=== PATIENT | female | born 1940 | race Caucasian/White ===

== ENCOUNTER → 2017-04-07 | Outpatient (REF) | payer MEDICARE | LOC: M LAB REF 13:25 | PROVIDERS: ATTEND Internal Medicine Endocrinology, Diabetes & Metabolism | DX: E04.2 Nontoxic multinodular goiter (principal) ==

== ENCOUNTER 2021-06-13 11:56 | Inpatient (IN) | payer MEDICARE ==
[~2021-06-13] VITALS: Ht 167.6 cm; Wt 100.8 kg
[2021-06-13] MEDS ORDERED: BACLOFEN 10 MG TAB PO ONE (13:55)
--- NOTE | 2021-06-13 14:29 | REP ---
INDICATION: tremors. COMPARISON: None. TECHNIQUE: Semi-erect AP portable chest x-ray. FINDINGS: The loop recorder is seen projecting over the left heart and there appears to be a lap band in the left upper quadrant. Oxygen delivery tubing is seen. Cardiomegaly is observed. The lungs are well inflated and free of infiltrate. Pleural angles are sharp. Pulmonary vasculature is not increased. 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 IMPRESSION: Cardiomegaly. Loop recorder. Otherwise no active disease. <Electronically signed by Anival Velez > 06/13/21 [id number]
[2021-06-13 14:39] LABS: BASO # 0.1 10^3/uL (0.0-0.2); BASO % 1.3 % (0.0-1.0); EOS # 0.4 10^3/uL (0.0-0.5); EOS % 4.3 % (0.0-3.0); HEMATOCRIT 47.2 % (36.0-47.0); HEMOGLOBIN 15.6 g/dl (12.0-15.5); LYMPH % 11.1 % (24.0-44.0); MEAN CORPUSCULAR HEMOGLOBIN 29.6 pg (27.0-33.0); MEAN CORPUSCULAR HGB CONC 33.1 g/dl (32.0-36.5); MEAN CORPUSCULAR VOLUME 89.6 fl (80.0-96.0); MONO % 11.9 % (2.0-8.0); NEUTROPHILS # 6.2 10^3/uL (1.5-8.5); NEUTROPHILS % 70.9 % (36.0-66.0); PLATELET COUNT, AUTOMATED 163 10^3/uL (150-450); RED BLOOD COUNT 5.27 10^6/uL (4.00-5.40); WHITE BLOOD COUNT 8.8 10^3/uL (4.0-10.0)
[2021-06-13 15:01] LABS: ALBUMIN 3.1 GM/DL (3.2-5.2); BILIRUBIN,DIRECT 0.1 MG/DL (0.0-0.2); BILIRUBIN,TOTAL 0.6 MG/DL (0.2-1.0); CALCIUM LEVEL 10.7 MG/DL (8.8-10.2); CREATININE FOR GFR 1.47 MG/DL (0.55-1.30); GLOMERULAR FILTRATION RATE 36.2 (>32); POTASSIUM SERUM 4.2 MEQ/L (3.5-5.1); TOTAL PROTEIN 7.4 GM/DL (6.4-8.2)
[2021-06-13 15:03] LABS: CK-MB VALUE MASS 1.4 NG/ML (<3.6); CPK CREATINE PHOSPHOKINASE 19 U/L (26-192); MB/CK RELATIVE INDEX 7.37 (< OR =4); TROPONIN I < 0.02 NG/ML (< 0.10)
[2021-06-13 15:05] LABS: INR 1.82; PROTHROMBIN TIME 21.5 SECONDS (12.5-14.3)
[2021-06-13 15:06] LABS: PARTIAL THROMBOPLASTIN TIME 35.4 SECONDS (24.2-38.5)
[2021-06-13 15:07] LABS: THYROID STIMULATING HORMONE 0.703 uIU/ML (0.358-3.740)
[2021-06-13] MEDS ORDERED: traMADol 50 MG TAB PO ONE ×2 (15:35→15:50)
[2021-06-13] MEDS ORDERED: PREGABALIN 100 MG CAP (LYRICA) PO ONE (15:35)
[2021-06-13 15:49] LABS: RSV AMPLIFICATION NEGATIVE (NEGATIVE)
[2021-06-13] MEDS ORDERED: AMLO1TAB24 PO (16:23)
[2021-06-13] MEDS ORDERED: TRAM50TA2 PO (16:23)
[2021-06-13] MEDS ORDERED: CO Q100C10 PO (16:23)
[2021-06-13] MEDS ORDERED: ATOR40TA75 PO (16:23)
[2021-06-13] MEDS ORDERED: VITA500030 PO (16:23)
[2021-06-13] MEDS ORDERED: IRBE300T7 PO (16:23)
[2021-06-13] MEDS ORDERED: OMEG12003 PO (16:23)
[2021-06-13] MEDS ORDERED: FURO20TA2 PO (16:23)
[2021-06-13] MEDS ORDERED: METO1TAB87 PO (16:23)
[2021-06-13] MEDS ORDERED: BIOT5000 PO (16:23)
[2021-06-13] MEDS ORDERED: LYRI200C PO (16:23)
[2021-06-13] MEDS ORDERED: WARF-58 PO (16:23)
[2021-06-13] MEDS ORDERED: VITMTA PO (16:23)
[2021-06-13] MEDS ORDERED: ACET25TA12 PO (16:49)
[2021-06-13] MEDS ORDERED: HOME MED LIST COMPLETE! XX SCH (16:50)
[2021-06-13] MEDS ORDERED: traMADol 50 MG TAB PO PRN (16:55)
[2021-06-13] MEDS ORDERED: **hydrALAZINE HCL** 25 MG TAB PO PRN (16:55)
--- NOTE | 2021-06-13 17:01 | HPEPDOC ---
General Date of Admission Jun 13, 2021 at 15:56 Date of Service: Jun 13, 2021 Chief Complaint The patient is a 80-year-old female admitted with a reason for visit of Inability To Walk, Tremors Of Nervous System. Source: Patient History of Present Illness Mrs. Martinez is an 80 year old female with chronic neuropathy and multiple spinal cord stimulators s/p removal who is here for worsening tremors/tonic-clonic motions and inability to ambulate. She has been through 3 different spinal cord stimulators. The first one lasted for 10 years. She had her second one lasting for 1.5 years before becoming infected. Her 3rd was placed last year. She was following with Dr. Smith for wound on back related to the spinal cord stimulator. Her wound would not heal with stimulator in place. Patient was referred to Dr. Holder to have it removed. During this time, patient started to have tremors. Tremors started in her hands on April 26, 2021. On May 20, 2021, her spinal cord stimulator was removed. About 8 days later, patient was called to return as blood cultures were positive. A PICC was placed on her right arm and she was on IV cefepime for 2 weeks. Last night was her last dose of cefepime. During this time period, her tremors continued to worsen and involve her legs. It made both ambulation and eating difficult. Today, she could not stand due to the tremors. Patient was brought into the ED for evaluation. ED reached out to neurology, Dr. Miller, who recommended lab work, Baclofen 10mg TID, and EEG. When I saw the patient, she had already gotten the Baclofen and her tremors were improved. She is right handed. She was able to do finger to nose, but had significant tremors worse on left than right. When I attempted pronator drift testing, it seems like her left shoulder was also trembling. Tremors better at rest and worse with activity. Otherwise, patient reported some nausea and abdominal discomfort from the antibiotics, which has improved since antibiotic completion. She had oral thrush which improved with nystatin swish and swallow. She still has her PICC placed. Patient will be admitted for severe tremors affecting ADLs and inability to ambulate. Allergies Coded Allergies: Penicillins (Verified Allergy, Unknown, 06/13/21) Past Medical History Medical History 1. Atrial fibrillation on warfarin 2. ROMARIO on BiPAP 3. Hypertension 4. CHF, unknown EF 5. Chronic back pain 6. GERD 7. 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 Lumbar laminectomy 2. Left carpal tunnel surgery 3. Lap band 4. Dorsal column stimulator in 2018 5. Left PHA 6. Dorsal column stimulator in 2020 7. Left knee 8. Right knee 9. Pacemaker 10. Bilateral cataracts Family History Father: History of lung cancer and MS Mother: History of 5 different cancers Social History * Smoker: former Smoker (quit 25 years ago) Alcohol: Denies Drugs: denies A-FIB/CHADSVASC A-FIB History Current/History of A-Fib/PAF?: Yes Current PO Anticoag Therapy: Yes Review of Systems Constitutional: Denies: Chills, Fever Eyes: Denies: Vision change ENT: Denies: Sore Throat Skin: Reports: Breakdown (sacral) Pulmonary: Denies: Dyspnea, Cough Cardiovascular: Denies: Chest Pain Gastrointestinal: Denies: Nausea, Abdominal Pain Genitourinary: Denies: Dysuria Hematologic: Denies: Bruising Neurological: Reports: Other Symptoms (neuropathy and tremors in arms and legs) Psych: Reports: Depression; Denies: Anxiety Physical Examination General Exam: Positive: Alert, Cooperative Eye Exam: Positive: EOMI; Negative: Sclera icteric ENT Exam: Positive: Atraumatic Neck Exam: Positive: Supple Chest Exam: Positive: Clear to auscultation Heart Exam: Positive: Rate Normal, Regular Rhythm Abdomen Exam: Positive: Normal bowel sounds, Soft; Negative: Tenderness Extremity Exam: Negative: Edema Neuro Exam: Positive: Normal Speech, Other (Patient is right handed, finger to nose intact but with significant tremors worse on left than right) Psych Exam: Positive: Mental status NL, Mood NL Vital Signs Vital Signs Date Time Temp Pulse Resp B/P (MAP) Pulse Ox O2 Delivery O2 Flow Rate FiO2 06/13/21 15:57 18 06/13/21 12:18 98.0 83 136/62 (86) 95 Nasal Cannula 2.0 Laboratory Data Labs 24H Laboratory Tests 2 06/13/21 14:23: Immature Granulocyte % (Auto) 0.5, Neutrophils (%) (Auto) 70.9H, Lymphocytes (%) (Auto) 11.1L, Monocytes (%) (Auto) 11.9H, Eosinophils (%) (Auto) 4.3H, Basophils (%) (Auto) 1.3H, Neutrophils # (Auto) 6.2, Lymphocytes # (Auto) 1.0L, Monocytes # (Auto) 1.0H, Eosinophils # (Auto) 0.4, Basophils # (Auto) 0.1, Nucleated Red Blood Cells % (auto) 0.0, Prothrombin Time 21.5H, Prothromb Time International Ratio 1.82, Activated Partial Thromboplast Time 35.4, Anion Gap 8, Glomerular Filtration Rate 36.2, Lactic Acid Level 0.7, Calcium Level 10.7H, Total Bilirubin 0.6, Direct Bilirubin 0.1, Aspartate Amino Transf (AST/SGOT) 24, Alanine Aminotransferase (ALT/SGPT) 29, Alkaline Phosphatase 95, Total Creatine Kinase 19L, Creatine Kinase MB 1.4, Creatine Kinase MB Relative Index 7.37H, Troponin I < 0.02, Total Protein 7.4, Albumin 3.1L, Albumin/Globulin Ratio 0.7L, Thyroid Stimulating Hormone (TSH) 0.703, Coronavirus (COVID-19)(PCR) NEGATIVE, Influenza Type A (RT-PCR) NEGATIVE, Influenza Type B (RT-PCR) NEGATIVE, Respiratory Syncytial Virus (PCR) NEGATIVE CBC/BMP Laboratory Tests 06/13/21 14:23 Microbiology Microbiology 06/13/21 Blood Culture, Received Pending Assessment/Plan Mrs. Martinez is an 80 year old female with chronic neuropathy and multiple spinal cord stimulators s/p removal who is here for worsening tremors/tonic-clonic motions and inability to ambulate. Neurology was consulted, recommendations appreciated. Continue with Baclofen 10mg TID. EEG ordered Plan / VTE VTE Prophylaxis Ordered?: Yes Plan Plan 1. Severe tremors affecting ADLs and ambulation -Tremors worse with activity, better at rest -Patient unable to ambulate -Neurology consulted, recommendations appreciated -TSH, Copper, Vitamin B1, and Vitamin B12 ordered -EEG ordered -Baclofen 10mg TID 2. Acute kidney injury -Unknown baseline but creatinine is elevated -Will hold Lasix and irbesartan - renal ordered -UA ordered 3. Atrial fibrillation on warfarin -Stable -Continue Lopressor and warfarin -Check INR daily 4. Hypertension -Cotninue amlodipine -Hold irbesartan. Start hydralazine 25mg PO q6hp SBP >160 5. Chronic pain -Cotninue tramadol and pregabalin 6. DVT ppx -On Warfarin Disposition: Pending clinical improvement and ability to ambulate. Pending EEG and neurology evaluation ELEANOR SCHMITZ DO Jun 13, 2021 17:01
--- NOTE | 2021-06-13 17:41 | REPVR ---
PROCEDURE INFORMATION: Exam: CT Head Without Contrast Exam date and time: 06/13/2021 5:17 PM Age: 80 years old Clinical indication: Other: Tremor; Additional info: Tremors, unable to do mri due to pacemaker TECHNIQUE: Imaging protocol: Computed tomography of the head without contrast. Radiation optimization: All CT scans at this facility use at least one of these dose optimization techniques: automated exposure control; mA and/or kV adjustment per patient size (includes targeted exams where dose is matched to clinical indication); or iterative reconstruction. COMPARISON: No relevant prior studies available. FINDINGS: Brain: Mild nonspecific hypodensities of the periventricular and deep subcortical white matter, most likely secondary to chronic small vessel ischemic change. No intracranial hemorrhage or extra-axial fluid collection. No evidence of mass effect or midline shift. Higginbotham-white matter differentiation is normal. Cerebral ventricles: Mild prominence of the ventricles and sulci, most likely attributed to parenchymal volume loss. Paranasal sinuses: Visualized sinuses are unremarkable. No fluid levels. Mastoid air cells: Unremarkable. Bones/joints: No acute osseus lesion or fracture. Soft tissues: Unremarkable. IMPRESSION: 1. No acute intracranial pathology. 2. Other chronic findings, as above. Electronically signed by: Daniel Reeves On 06/13/2021 17:40:42 PM
--- NOTE | 2021-06-13 18:13 | REP ---
INDICATION: LISA. COMPARISON: None. TECHNIQUE: Urinary tract sonography. FINDINGS: Scanning at the level of the urinary bladder shows no abnormality. Renal cortical echogenicity pattern is normal bilaterally and contours are smooth. There is a 1.5 cm cyst in the left mid kidney. No renal mass lesion is observed.. The right kidney measures 10.7 x 4.9 x 4.9 cm. Left renal dimensions are 10.2 x 4.5 x 5.2 cm. IMPRESSION: Small cyst left mid kidney. Otherwise negative urinary tract sonogram.. <Electronically signed by Anival Velez > 06/13/21 [id number]
[2021-06-13 18:40] VITALS: BP 122/67
[2021-06-13] MEDS: WARFARIN SOD 3MG TAB PO SCH (19:29)
[2021-06-13] MEDS: ATORVASTATIN 20 MG TAB PO SCH (19:29)
[2021-06-13 21:33] VITALS: BP 118/66
[2021-06-13] MEDS: MULTIVITAMINS/MINERALS THERAP 1 TAB PO SCH (21:42)
[2021-06-13] MEDS: BACLOFEN 10 MG TAB PO SCH (21:43)
[2021-06-13] MEDS: METOPROLOL TART 25 MG TABLET PO SCH (21:43)
[2021-06-13] MEDS: PREGABALIN 100 MG CAP (LYRICA) PO SCH (21:43)
[2021-06-14 06:00] VITALS: BP 133/84
[2021-06-14 07:21] LABS: HEMATOCRIT 47.7 % (36.0-47.0); HEMOGLOBIN 15.7 g/dl (12.0-15.5); MEAN CORPUSCULAR HEMOGLOBIN 29.9 pg (27.0-33.0); MEAN CORPUSCULAR HGB CONC 32.9 g/dl (32.0-36.5); MEAN CORPUSCULAR VOLUME 90.9 fl (80.0-96.0); PLATELET COUNT, AUTOMATED 133 10^3/uL (150-450); RED BLOOD COUNT 5.25 10^6/uL (4.00-5.40)
[2021-06-14 07:32] LABS: INR 1.82; PROTHROMBIN TIME 21.5 SECONDS (12.5-14.3)
[2021-06-14 07:47] LABS: CALCIUM LEVEL 10.2 MG/DL (8.8-10.2); CREATININE FOR GFR 1.59 MG/DL (0.55-1.30); GLOMERULAR FILTRATION RATE 33.1 (>32); POTASSIUM SERUM 4.1 MEQ/L (3.5-5.1)
[2021-06-14] MEDS: PREGABALIN 100 MG CAP (LYRICA) PO SCH ×3 (08:47→22:28)
[2021-06-14] MEDS: BACLOFEN 10 MG TAB PO SCH (08:47)
[2021-06-14] MEDS: MULTIVITAMINS/MINERALS THERAP 1 TAB PO SCH ×2 (08:47→22:28)
[2021-06-14] MEDS: METOPROLOL TART 25 MG TABLET PO SCH ×2 (08:48→22:29)
[2021-06-14] MEDS: amLODIPine 5 MG TAB PO SCH (08:48)
[2021-06-14] MEDS ORDERED: PROMETHAZINE INJ 25 MG/ML VIAL (J2550) IV PRN (09:50)
[2021-06-14] MEDS: NYSTATIN 100,000 UNITS/GM TOPICAL PWD 15 GM TOP SCH ×2 (11:48→22:29)
[2021-06-14 14:00] VITALS: BP 133/82
--- NOTE | 2021-06-14 14:36 | IPNPDOC ---
Subjective Date Seen The patient was seen on 06/14/21. Subjective Chief Complaint/HPI Mrs. Martinez is an 80 year old female with chronic neuropathy and multiple spinal cord stimulators s/p removal who is here for worsening tremors/tonic-clonic motions and inability to ambulate. This morning, she was sleeping. She did not have tremors while sleeping. When I woke her up, she had intention tremors. Denies chest pain or dyspnea, but she was nauseous and had vomited. In the afternoon, she was also difficult to arouse. Although the baclofen did help with the tremors, she has not been able to tolerate the side effects. Will discont inue baclofen. Touched base with neurology, who recommended increasing her beta lucio if tolerated. They will see later today. Otherwise, patient has a pacemaker. Unable to obtain MRI. Objective Physical Examination General Exam: Positive: Cooperative Eye Exam: Positive: EOMI; Negative: Sclera icteric ENT Exam: Positive: Atraumatic Neck Exam: Positive: Supple Chest Exam: Positive: Clear to auscultation Heart Exam: Positive: Rate Normal, Regular Rhythm Abdomen Exam: Positive: Normal bowel sounds, Soft; Negative: Tenderness Extremity Exam: Negative: Edema Neuro Exam: Positive: Normal Speech, Other (Patient is right handed, finger to nose intact but with significant tremors worse on left than right) Psych Exam: Positive: Mental status NL, Mood NL Assessment /Plan Assessment Mrs. Martinez is an 80 year old female with chronic neuropathy and multiple spinal cord stimulators s/p removal who is here for worsening tremors/tonic-clonic motions and inability to ambulate. Neurology was consulted, recommendations appreciated. Patient was not able to tolerate Baclofen 10mg TID (increased lethargy). EEG ordered. MRI unable to obtain due to pacemaker. Plan/VTE VTE Prophylaxis Ordered?: Yes Plan 1. Severe tremors affecting ADLs and ambulation -Tremors worse with activity, better at rest -Patient unable to ambulate -Neurology consulted, recommendations appreciated -TSH, Copper, Vitamin B1, and Vitamin B12 ordered -EEG ordered. Unable to obtain MRI due to pacemaker -Unable to tolerate baclofen 10mg TID (increased lethargy and nausea) -Increase beta lucio 2. Acute kidney injury -Unknown baseline but creatinine is elevated -Will hold Lasix and irbesartan -US renal negative -UA ordered 3. Atrial fibrillation on warfarin -Stable -Continue Lopressor and warfarin -Check INR daily 4. Hypertension -Continue amlodipine -Hold irbesartan. Start hydralazine 25mg PO q6hp SBP >160 5. Chronic pain -Continue tramadol and pregabalin 6. DVT ppx -On Warfarin Disposition: Pending clinical improvement and ability to ambulate. Patient may need rehab/ARU. Pending EEG and neurology evaluation VS, I&O, 24H, Fishbone Vital Signs/I&O Vital Signs Date Time Temp Pulse Resp B/P (MAP) Pulse Ox O2 Delivery O2 Flow Rate FiO2 06/14/21 14:00 98.4 74 19 133/82 (99) 95 Room Air 06/14/21 06:00 2.0 I&O- Last 24 Hours up to 6 AM 06/14/21 06:00 Intake Total 120 ml Balance 120 ml Laboratory Data 24H LABS Laboratory Tests 2 06/14/21 06:54: Nucleated Red Blood Cells % (auto) 0.0, Prothrombin Time 21.5H, Prothromb Time International Ratio 1.82, Anion Gap 7L, Glomerular Filtration Rate 33.1, Calcium Level 10.2 CBC/BMP Laboratory Tests 06/14/21 06:54 Microbiology Microbiology 06/13/21 Blood Culture, Received Pending ELEANOR SCHMITZ DO Jun 14, 2021 14:36
[2021-06-14] MEDS ORDERED: NS 500 ML IV ONE (14:40)
[2021-06-14] MEDS ORDERED: WARFARIN SOD 5MG TAB PO ONE (17:00)
[2021-06-14] MEDS: ATORVASTATIN 20 MG TAB PO SCH (17:34)
--- NOTE | 2021-06-14 20:28 | ECGEPIP ---
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
[2021-06-14] MEDS ORDERED: METOPROLOL TART 50 MG TAB PO SCH (21:00)
[2021-06-14 22:00] VITALS: BP 152/84
[2021-06-15 04:57] LABS: HEMATOCRIT 48.5 % (36.0-47.0); HEMOGLOBIN 16.3 g/dl (12.0-15.5); MEAN CORPUSCULAR HEMOGLOBIN 30.2 pg (27.0-33.0); MEAN CORPUSCULAR HGB CONC 33.6 g/dl (32.0-36.5); MEAN CORPUSCULAR VOLUME 89.8 fl (80.0-96.0); PLATELET COUNT, AUTOMATED 156 10^3/uL (150-450); WHITE BLOOD COUNT 10.7 10^3/uL (4.0-10.0)
[2021-06-15 05:08] LABS: INR 1.89; PROTHROMBIN TIME 22.1 SECONDS (12.5-14.3)
[2021-06-15 05:26] LABS: CALCIUM LEVEL 9.9 MG/DL (8.8-10.2); CREATININE FOR GFR 1.27 MG/DL (0.55-1.30); GLOMERULAR FILTRATION RATE 42.9 (>32); POTASSIUM SERUM 3.4 MEQ/L (3.5-5.1)
[2021-06-15 06:00] VITALS: BP 144/82
[2021-06-15] MEDS ORDERED: POTASSIUM CHLORIDE 10 MEQ SR TABLET PO ONE (07:20)
[2021-06-15] MEDS: SUCRALFATE SUSP 1GM/10ML UD PO SCH ×4 (07:30→20:06)
[2021-06-15] MEDS: PREGABALIN 100 MG CAP (LYRICA) PO SCH ×3 (08:00→20:06)
[2021-06-15] MEDS: MULTIVITAMINS/MINERALS THERAP 1 TAB PO SCH ×2 (08:00→20:06)
[2021-06-15] MEDS: METOPROLOL TART 25 MG TABLET PO SCH ×2 (08:01→20:07)
[2021-06-15] MEDS: NYSTATIN 100,000 UNITS/GM TOPICAL PWD 15 GM TOP SCH ×2 (08:02→20:07)
[2021-06-15] MEDS: amLODIPine 5 MG TAB PO SCH (08:02)
--- NOTE | 2021-06-15 10:36 | IPNPDOC ---
Subjective Date Seen The patient was seen on 06/15/21. Subjective Chief Complaint/HPI Mrs. Martinez is an 80 year old female with chronic neuropathy and multiple spinal cord stimulators s/p removal who is here for worsening tremors/tonic-clonic motions and inability to ambulate. Yesterday, neurology tried to see her, but she was still very lethargic. Most likely due to the baclofen. Suspecting Phenergan may contribute to it too. This morning, she was arousable, but still very lethargic. She was not feeling well, but could not explain why. Added on IV Protonix and Carafate to see if it would help. Objective Physical Examination General Exam: Positive: Cooperative Eye Exam: Positive: EOMI; Negative: Sclera icteric ENT Exam: Positive: Atraumatic Neck Exam: Positive: Supple Chest Exam: Positive: Clear to auscultation Heart Exam: Positive: Rate Normal, Regular Rhythm Abdomen Exam: Positive: Normal bowel sounds, Soft; Negative: Tenderness Extremity Exam: Negative: Edema Neuro Exam: Positive: Normal Speech, Other (Patient is right handed, finger to nose intact but with significant tremors worse on left than right) Psych Exam: Positive: Mental status NL, Mood NL Assessment /Plan Assessment Mrs. Martinez is an 80 year old female with chronic neuropathy and multiple spinal cord stimulators s/p removal who is here for worsening tremors/tonic-clonic motions and inability to ambulate. Neurology was consulted, recommendations appreciated. Patient was not able to tolerate Baclofen 10mg TID (increased lethargy). EEG ordered. MRI unable to obtain due to pacemaker. Plan/VTE VTE Prophylaxis Ordered?: Yes Plan 1. Severe tremors affecting ADLs and ambulation -Tremors worse with activity, better at rest -Patient unable to ambulate -Neurology consulted, recommendations appreciated -TSH 0.7 (WNL), Copper (pending), Vitamin B1 (Pending), and Vitamin B12 1494 (elevated) -EEG ordered, but will need to be redone when more awake -Unable to obtain MRI due to pacemaker -Unable to tolerate baclofen 10mg TID (increased lethargy and nausea) 2. Acute kidney injury -Unknown baseline but creatinine is elevated -Will hold Lasix and irbesartan -US renal negative -UA ordered -Improving 3. Atrial fibrillation on warfarin -Stable -Continue Lopressor and warfarin -Check INR daily 4. Hypertension -Continue amlodipine -Hold irbesartan. Start hydralazine 25mg PO q6hp SBP >160 5. Chronic pain -Continue tramadol and pregabalin 6. DVT ppx -On Warfarin Disposition: Pending clinical improvement and ability to ambulate. Patient may need rehab/ARU. When more awake, will need to repeat EEG and have neurology evaluation VS, I&O, 24H, Fishbone Vital Signs/I&O Vital Signs Date Time Temp Pulse Resp B/P (MAP) Pulse Ox O2 Delivery O2 Flow Rate FiO2 06/15/21 09:00 2.0 06/15/21 08:01 88 144/82 06/15/21 06:00 97.2 18 92 Nasal Cannula I&O- Last 24 Hours up to 6 AM 06/15/21 06:00 Intake Total 0 ml Output Total 1 ml Balance -1 ml Laboratory Data 24H LABS Laboratory Tests 2 06/14/21 18:36: Ammonia 21 06/15/21 04:31: Nucleated Red Blood Cells % (auto) 0.0, Prothrombin Time 22.1H, Prothromb Time International Ratio 1.89, Anion Gap 7L, Glomerular Filtration Rate 42.9, Calcium Level 9.9 06/15/21 04:55: CBC/BMP Laboratory Tests 06/15/21 04:31 Microbiology Microbiology 06/15/21 Blood Culture, Received Pending 06/13/21 Blood Culture - Preliminary, Resulted No growth after 24 hours . All specim... ELEANOR SCHMITZ DO Jun 15, 2021 10:36
[2021-06-15] MEDS: PANTOPRAZOLE 40MG VIAL (C9113 PER 1) IV SCH (11:59)
--- NOTE | 2021-06-15 12:42 | REP ---
INDICATION: Increased lethargy, aspiration?. COMPARISON: Comparison chest x-ray June 13, 2021. TECHNIQUE: Portable upright AP chest radiograph. FINDINGS: The lungs are symmetrically aerated and free of infiltrate. Pleural angles are sharp. There is moderate cardiac enlargement. A loop recorder is seen projecting over the heart. There is a right upper extremity PICC line with its tip in the expected location of the SVC right atrial junction. Pulmonary vasculature and interstitial markings are mildly prominent diffusely.. IMPRESSION: Moderate cardiac enlargement. Right-sided PICC line. Mildly prominent interstitial markings.. <Electronically signed by Anival Velez > 06/15/21 [id number]
--- NOTE | 2021-06-15 13:32 | REP ---
INDICATION: AMS, lethargy. COMPARISON: Comparison head CT study June 13, 2021.. TECHNIQUE: Helical scanning is acquired. 5 mm axial images were reformatted. Coronal MPR images were generated. FINDINGS: Digital preliminary shaper set up operator radiograph is unremarkable. Vascular calcifications again noted at the skull base. The visualized paranasal sinuses are clear. Bony calvarium is intact. On soft tissue window settings, there is mild generalized volume loss. Small vessel atherosclerotic changes are seen. There is no evidence of intracranial hemorrhage, mass, infarct, extra-axial fluid collection, or midline shift. No acute change in CT findings from prior study of June 13, 2021. IMPRESSION: Findings unchanged. No acute intracranial abnormality. Vascular calcification, generalized volume loss, small vessel changes.. <Electronically signed by Anival Velez > 06/15/21 [id number]
[2021-06-15 14:16] VITALS: BP 146/81
[2021-06-15] MEDS: ATORVASTATIN 20 MG TAB PO SCH (17:21)
[2021-06-15] MEDS: WARFARIN SOD 3MG TAB PO SCH (17:22)
[2021-06-15] MEDS: PERCOCET 5MG/325MG TAB PO PRN (18:44)
[2021-06-15] MEDS: MICONAZOLE-7 VAGINAL 2% CREAM 47.7 GM PV SCH (20:06)
[2021-06-16 05:36] LABS: HEMATOCRIT 49.3 % (36.0-47.0); HEMOGLOBIN 16.2 g/dl (12.0-15.5); MEAN CORPUSCULAR HEMOGLOBIN 29.7 pg (27.0-33.0); MEAN CORPUSCULAR HGB CONC 32.9 g/dl (32.0-36.5); MEAN CORPUSCULAR VOLUME 90.5 fl (80.0-96.0); PLATELET COUNT, AUTOMATED 155 10^3/uL (150-450); RED BLOOD COUNT 5.45 10^6/uL (4.00-5.40); WHITE BLOOD COUNT 15.5 10^3/uL (4.0-10.0)
[2021-06-16 05:53] LABS: INR 2.5; PROTHROMBIN TIME 27.6 SECONDS (12.5-14.3)
[2021-06-16 06:00] VITALS: BP 141/83
[2021-06-16 06:01] LABS: CALCIUM LEVEL 9.8 MG/DL (8.8-10.2); CREATININE FOR GFR 1.31 MG/DL (0.55-1.30); GLOMERULAR FILTRATION RATE 41.4 (>32); POTASSIUM SERUM 4.4 MEQ/L (3.5-5.1)
[2021-06-16] MEDS: SUCRALFATE SUSP 1GM/10ML UD PO SCH ×4 (08:08→20:59)
[2021-06-16] MEDS: PREGABALIN 100 MG CAP (LYRICA) PO SCH ×3 (08:09→20:59)
[2021-06-16] MEDS: METOPROLOL TART 25 MG TABLET PO SCH (08:09)
[2021-06-16] MEDS: PANTOPRAZOLE 40MG VIAL (C9113 PER 1) IV SCH (08:10)
[2021-06-16] MEDS: MULTIVITAMINS/MINERALS THERAP 1 TAB PO SCH ×2 (08:10→20:59)
[2021-06-16] MEDS: amLODIPine 5 MG TAB PO SCH (08:10)
[2021-06-16] MEDS: NYSTATIN 100,000 UNITS/GM TOPICAL PWD 15 GM TOP SCH ×2 (08:11→21:01)
--- NOTE | 2021-06-16 08:55 | EEG ---
ELECTROENCEPHALOGRAM DATE: 06/14/2021 REFERRING PHYSICIAN: ELEANOR SCHMITZ DO DIAGNOSIS: Tremor, tonic clonic movements of trunk and limbs. EEG#: [id number] HISTORY: The patient is an 80-year-old woman with history of neuropathy, multiple spinal cord stimulator placements status post removal due to infections. She has developed new tremor and body jerks. She is currently taking baclofen, Lyrica, tramadol, Coumadin, metoprolol, hydralazine. TECHNICAL DESCRIPTION: This digital electroencephalogram (EEG) was recorded by 21 scalp, ear, and two electrocardiogram (EKG) electrodes and was reviewed in bipolar and referential montages following reformatting in 10-20 international electrode placement system. INTERPRETATION: The patient was noted to be in mostly drowsy and asleep states. Background rhythm consisted of 3-4 Hz delta activity measuring 15-100 microvolts in amplitude which was symmetric bilaterally. Stage II and III sleep were reviewed and were symmetric bilaterally. Hyperventilation was not performed. Photic stimulation remained unremarkable. EKG revealed paced rhythm. No focal, lateralizing, or epileptiform abnormalities were seen. No relevant clinical activity was noted. CONCLUSION: This EEG in mostly drowsy state, stage II and III sleep is abnormal due to presence generalized slowing and disorganization of background consistent with nonspecific diffuse cerebral dysfunction suggesting an encephalopathy due to multiple potential causes including toxic, metabolic, infectious, medication related, or multifocal structural brain abnormalities. No epileptiform abnormalities were seen. Clinical correlation is recommended. MTDD
[2021-06-16] MEDS: FUROSEMIDE 20 MG TAB PO SCH (09:00)
[2021-06-16] MEDS ORDERED: MORPHINE 2 MG/ML 1ML VIAL (J2270) IV PRN (12:50)
[2021-06-16 14:00] VITALS: BP 137/82
--- NOTE | 2021-06-16 14:59 | REPVR ---
PROCEDURE INFORMATION: Exam: CT Neck Without Contrast Exam date and time: 06/16/2021 2:12 PM Age: 80 years old Clinical indication: Other: Difficulty rotating neck TECHNIQUE: Imaging protocol: Computed tomography images of the neck without contrast. Radiation optimization: All CT scans at this facility use at least one of these dose optimization techniques: automated exposure control; mA and/or kV adjustment per patient size (includes targeted exams where dose is matched to clinical indication); or iterative reconstruction. COMPARISON: CT Head without contrast 06/15/2021 11:46 AM FINDINGS: Nasopharynx: Unremarkable. Oropharynx: No significant tonsillar enlargement. Hypopharynx: Unremarkable. Larynx: Normal epiglottis. Retropharyngeal space: Tortuous, medialized retropharyngeal course of the internal carotid arteries. Submandibular/Parotid glands: Glands are normal in size. Thyroid: A large multinodular thyroid gland, with largest nodule on the left measuring up to 5.8 x 4.6 cm. Lymph nodes: No lymphadenopathy. Trachea: Visualized trachea is mildly displaced to the right from the large left thyroid nodules. Lungs: Unremarkable as visualized. Bones/joints: No acute fracture. Severe bilateral shoulder degenerative change with bursal debris. Vasculature: Extensive atherosclerotic calcifications. Soft tissues: No significant soft tissue swelling. IMPRESSION: 1. Large multinodular thyroid gland with nodules measuring to 5.8 cm on the left, causing mild mass effect on the trachea and esophagus. 2. Otherwise, no cervical mass or lymphadenopathy within constraints of noncontrast imaging. COMMENTS: Consistent with the [employer]'s Incidental Findings Committee white paper (J Am Troy Radiol 2015): In patients aged 35 years and older with an incidental thyroid nodule equal to or greater than 1.[address], MRI or extrathyroidal US, further evaluation with dedicated thyroid US is recommended for patients with normal life expectancy and without comorbidities. For smaller nodules without suspicious features, no further evaluation or follow up is recommended. Electronically signed by: Jamison Last On 06/16/2021 14:58:56 PM
[2021-06-16] MEDS: ATORVASTATIN 20 MG TAB PO SCH (17:39)
[2021-06-16] MEDS: WARFARIN SOD 3MG TAB PO SCH (17:39)
--- NOTE | 2021-06-16 19:01 | IPNPDOC ---
Subjective Date Seen The patient was seen on 06/16/21. Subjective Chief Complaint/HPI Mrs. Martinez is an 80 year old female with chronic neuropathy and multiple spinal cord stimulators s/p removal who is here for worsening tremors/tonic-clonic motions and inability to ambulate. This morning, she was more awake. When sleeping, I would not see her tremors, but when awake she would tremor with activity. Since she was more awake, I ask neurology to see if he could see her. Objective Physical Examination General Exam: Positive: Cooperative Eye Exam: Positive: EOMI; Negative: Sclera icteric ENT Exam: Positive: Atraumatic Neck Exam: Positive: Supple Chest Exam: Positive: Clear to auscultation Heart Exam: Positive: Rate Normal, Regular Rhythm Abdomen Exam: Positive: Normal bowel sounds, Soft; Negative: Tenderness Extremity Exam: Negative: Edema Neuro Exam: Positive: Normal Speech, Other (Patient is right handed, finger to nose intact but with significant tremors worse on left than right) Psych Exam: Positive: Mental status NL, Mood NL Assessment /Plan Assessment Mrs. Martinez is an 80 year old female with chronic neuropathy and multiple spinal cord stimulators s/p removal who is here for worsening tremors/tonic-clonic motions and inability to ambulate. Neurology was consulted, recommendations appreciated. Patient was not able to tolerate Baclofen 10mg TID (increased lethargy). EEG demonstrates encephalopathy. MRI unable to obtain due to pacemaker. Patient vomited a few days back and was developed leukocytosis. Patient does have a yeast infection. Started patient on ceftriaxone for possible UTI, but UA negative. Possibly pneumonia from aspiration. Ordered for CXR. Plan/VTE VTE Prophylaxis Ordered?: Yes Plan 1. Severe tremors affecting ADLs and ambulation -Tremors worse with activity, better at rest -Patient unable to ambulate -Neurology consulted, recommendations appreciated -TSH 0.7 (WNL), Copper (pending), Vitamin B1 (Pending), and Vitamin B12 1494 (elevated) -EEG demonstrates encephalopathy -Unable to obtain MRI due to pacemaker -Unable to tolerate baclofen 10mg TID (increased lethargy and nausea) 2. Acute kidney injury -Unknown baseline but creatinine is elevated -Will hold Lasix and irbesartan -US renal negative -UA negative 3. Atrial fibrillation on warfarin -Stable -Continue Lopressor and warfarin -Check INR daily 4. Hypertension -Continue amlodipine -Hold irbesartan. Start hydralazine 25mg PO q6hp SBP >160 5. Chronic pain -Continue tramadol and pregabalin 6. DVT ppx -On Warfarin Disposition: Pending clinical improvement and ability to ambulate. Patient may need rehab/ARU. Neurology consulted, recommendations appreciated VS, I&O, 24H, [place] Vital Signs/I&O Vital Signs Date Time Temp Pulse Resp B/P (MAP) Pulse Ox O2 Delivery O2 Flow Rate FiO2 06/16/21 14:00 98.4 84 16 137/82 (100) 90 Nasal Cannula 2.0 I&O- Last 24 Hours up to 6 AM 06/16/21 06:00 Intake Total 100 ml Balance 100 ml Laboratory Data 24H LABS Laboratory Tests 2 06/16/21 05:11: Nucleated Red Blood Cells % (auto) 0.0, Prothrombin Time 27.6H, Prothromb Time International Ratio 2.50, Anion Gap 8, Glomerular Filtration Rate 41.4, Calcium Level 9.8 06/16/21 18:01: Urine Color YELLOW, Urine Appearance HAZY, Urine pH 6.0, Urine Specific [place] 1.018, Urine Protein 2+H, Urine Glucose (UA) NEGATIVE, Urine Ketones TRACEH, Urine Blood NEGATIVE, Urine Nitrite NEGATIVE, Urine Bilirubin NEGATIVE, Urine Urobilinogen 0.2, Urine Leukocyte Esterase NEGATIVE, Urine WBC (Auto) 1, Urine RBC (Auto) 0, Urine Hyaline Casts (Auto) 0, Urine Bacteria (Auto) NEGATIVE, Urine Squamous Epithelial Cells 0, Urine Mucus (Auto) SMALL, Urine Sperm (Auto) CBC/BMP Laboratory Tests 06/16/21 05:11 Microbiology Microbiology 06/15/21 Blood Culture - Preliminary, Resulted No growth after 24 hours . All specim... 06/13/21 Blood Culture - Preliminary, Resulted No Growth after 72 hours. All specime... ELEANOR SCHMITZ DO Jun 16, 2021 19:01
--- NOTE | 2021-06-16 20:05 | REP ---
INDICATION: luekocytosis, vomiting a few days back, PNA?. COMPARISON: 06/15/2021 the latest prior also portable FINDINGS: The technique utilized in obtaining the radiograph has magnified the cardiac silhouette and accentuated the interstitial markings. There is cardiomegaly accentuated by technique status quo. There is interstitial fibrosis status quo. No acute patchy parenchymal opacities or pleural effusions have developed. There is no change in the osseous structures. IMPRESSION: There is no acute cardiopulmonary disease. <Electronically signed by Néstor Orourke > 06/16/212000
[2021-06-16] MEDS: cefTRIAXone SOD 1 GM in D5W MINI-BAG PLUS 50 ML IV SCH (20:58)
[2021-06-16] MEDS: TAMSULOSIN 0.4 MG CAP PO SCH (20:59)
[2021-06-16] MEDS: METOPROLOL TART 50 MG TAB PO SCH (20:59)
[2021-06-16] MEDS: MICONAZOLE-7 VAGINAL 2% CREAM 47.7 GM PV SCH (21:00)
[2021-06-16 22:00] VITALS: BP 133/82
[2021-06-16] MEDS ORDERED: SODIUM CHLORIDE 0.9% INJ 10 ML SYR IV PRN (22:20)
[2021-06-17 05:19] VITALS: BP 130/81
[2021-06-17] MEDS: SODIUM CHLORIDE 0.9% INJ 10 ML SYR IV SCH ×2 (05:33→17:20)
[2021-06-17 05:55] LABS: HEMATOCRIT 46.5 % (36.0-47.0); HEMOGLOBIN 15.4 g/dl (12.0-15.5); MEAN CORPUSCULAR HGB CONC 33.1 g/dl (32.0-36.5); MEAN CORPUSCULAR VOLUME 90.6 fl (80.0-96.0); PLATELET COUNT, AUTOMATED 126 10^3/uL (150-450); RED BLOOD COUNT 5.13 10^6/uL (4.00-5.40); WHITE BLOOD COUNT 13.9 10^3/uL (4.0-10.0)
[2021-06-17 06:16] LABS: INR 3.67; PROTHROMBIN TIME 37.3 SECONDS (12.5-14.3)
[2021-06-17 06:21] LABS: CALCIUM LEVEL 9.6 MG/DL (8.8-10.2); CREATININE FOR GFR 1.14 MG/DL (0.55-1.30); GLOMERULAR FILTRATION RATE 48.6 (>32); POTASSIUM SERUM 4.2 MEQ/L (3.5-5.1)
[2021-06-17] MEDS: FUROSEMIDE 20 MG TAB PO SCH (08:29)
[2021-06-17] MEDS: SUCRALFATE SUSP 1GM/10ML UD PO SCH ×4 (08:29→20:43)
[2021-06-17] MEDS: METOPROLOL TART 50 MG TAB PO SCH ×2 (08:29→20:43)
[2021-06-17] MEDS: PREGABALIN 100 MG CAP (LYRICA) PO SCH ×3 (08:29→20:43)
[2021-06-17] MEDS: amLODIPine 5 MG TAB PO SCH (08:30)
[2021-06-17] MEDS: NYSTATIN 100,000 UNITS/GM TOPICAL PWD 15 GM TOP SCH ×2 (08:30→20:44)
[2021-06-17] MEDS: MULTIVITAMINS/MINERALS THERAP 1 TAB PO SCH ×2 (08:30→20:42)
[2021-06-17] MEDS: PANTOPRAZOLE 40MG VIAL (C9113 PER 1) IV SCH (08:30)
--- NOTE | 2021-06-17 10:14 | REPVR ---
PROCEDURE INFORMATION: Exam: CT Cervical Spine Without Contrast Exam date and time: 06/17/2021 9:21 AM Age: 80 years old Clinical indication: Other: Difficulty rotating neck TECHNIQUE: Imaging protocol: Computed tomography images of the cervical spine without contrast. Radiation optimization: All CT scans at this facility use at least one of these dose optimization techniques: automated exposure control; mA and/or kV adjustment per patient size (includes targeted exams where dose is matched to clinical indication); or iterative reconstruction. COMPARISON: None available. FINDINGS: Bones/joints: No acute fracture. Normal alignment. Discs/Spinal canal/Neural foramina: No significant disc protrusion. There is multilevel facet hypertrophy. No severe spinal canal stenosis. No significant neural foraminal narrowing. Lungs: Lung apices are normal. Soft tissues: There is diffuse masslike enlargement of the thyroid gland with calcific and hypodense nodular areas, suggestive of goiter. IMPRESSION: No acute fracture, listhesis or advanced degenerative change. Electronically signed by: Danae Elias On 06/17/2021 10:13:26 AM
[2021-06-17] MEDS ORDERED: ACETAMINOPHEN TAB 650MG DOSE (2X325MG) PO PRN (10:30)
--- NOTE | 2021-06-17 12:45 | CR ---
CONSULTATION DATE: 06/14/2021 REFERRING PROVIDER: Dr. Desean Ladnrum Andie Martinez is an 80-year-old female with a history of peripheral polyneuropathy, chronic pain status post spinal column stimulator with multiple surgeries and removal of it. The patient also has a pacemaker. The patient started to develop over the last week episodes of tremors. Initial consultation visit on 06/14/2021 the patient was quite obtunded, lethargic, and unable to wake up and participate. I revisited her on 06/16/2021, where she was more awake and cooperative. The patient has evidence of asterixis, likely secondary to her worsening kidney function, high dose of Lyrica, and encephalopathy. Lyrica was recommended to be cut down from 200 mg three times a day to at least 50% of the dosage. As the patient's encephalopathy improves, hopefully the myoclonus improved. The negative myoclonus is likely contributing toward her inability to ambulate correctly or hold onto objects. She does not have any postural tremor or resting tremor. The patient has no cogwheel rigidity or increased tone. The patient does have reasonable strength in the biceps and triceps in both arms. She does experience some weakness in the lower extremities but does have reasonable 5/5 strength in quadriceps. She does ambulate with the use of a walker and bilateral AFO braces. She has a fused left ankle. The patient has a foot drop on the right. She has history of chronic low back pain. She does not have any loss of bowel or bladder function. ALLERGIES: PENICILLIN. PAST MEDICAL HISTORY: 1. Atrial fibrillation, on Coumadin. 2. Obstructive sleep apnea, on bilevel positive airway pressure (BiPAP). 3. Hypertension. 4. Congestive heart failure (CHF). 5. Chronic back pain. 6. Gastroesophageal reflux disease (GERD). 7. 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 PAST SURGICAL HISTORY: 1 Lumbar laminectomy. 2. Left carpal tunnel surgery. 3. Lap-Band. 4. Dorsal column stimulator in 2018. 5. Left total hip arthroplasty (REBECA). 6. Dorsal column stimulator in 2020. 7. Left knee surgery. 8. Right knee surgery. 9. Pacemaker placement. 10. Bilateral cataract surgery. FAMILY HISTORY: Noncontributory. SOCIAL HISTORY: Patient is a former smoker. Quit 25 years ago. She denies use of any alcohol or illicit drugs. REVIEW OF SYSTEMS: A 14-point review of systems obtained and is negative except as per history of present illness (HPI). PHYSICAL EXAMINATION: Blood pressure is 137/82, pulse rate 84, temperature 98.4 degrees Fahrenheit, respiratory rate 16, oxygenation 90% on 2 liters nasal cannula. Patient is oriented to person, place, and time. Speech, language, comprehension, repetition are intact. Pupils appear 3 mm and round. Extraocular movements are intact without nystagmus. There is no facial weakness. Tongue is midline. Hearing is equal to finger rub. There is no loss of sensation to light touch in the face, arms, and legs. There is no pronator drift. There is negative myoclonus/asterixis noted in the upper extremities. The patient has weakness in bilateral deltoids, grade 4+. Bilateral biceps/triceps is 5/5. 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 Patient has weakness in bilateral iliopsoas. Has significant foot drop on the right foot, grade 3+, and has quadriceps strength of 5/5. Babinski signs are absent. Deep tendon reflexes are 2 throughout with reduced Achilles reflexes and reduced patellar reflexes. Sensory is intact to light touch in all four extremities. Coordination without any gross ataxia or dysmetria. There is no resting tremor or postural tremor. There is no masked facies. There is no reason to think the patient has Parkinson's. There is no intention tremor, postural tremor at this time. Gait deferred. IMAGING: Cervical spine CT 06/17/2021 shows no acute fracture, listhesis, or advanced degenerative changes. Head CT 06/15/2021 shows generalized volume loss and small-vessel ischemic changes. Patient was given baclofen day #1 of admission, and she became quite lethargic after it. She was also given Phenergan, which also contributed toward some extreme tiredness. Lyrica is now at 100 mg three times a day after yesterday's recommendation. ASSESSMENT: Asterixis/negative myoclonus, likely secondary to current dose of Lyrica, acute kidney disease, and encephalopathy. PLAN: Reduce Lyrica from 200 three times a day down to 100 three times a day. Continue to hydrate well. Kidney function is improving Continue supportive care. Continue rehabilitation needs. Patient can followup with her spine surgeons, pain clinic as scheduled upon discharge. NANCY
[2021-06-17 14:02] VITALS: BP 128/79
--- NOTE | 2021-06-17 14:12 | IPNPDOC ---
Subjective Date Seen The patient was seen on 06/17/21. Subjective Chief Complaint/HPI Mrs. Martinez is an 80 year old female with chronic neuropathy and multiple spinal cord stimulators s/p removal who is here for worsening tremors/tonic-clonic motions and inability to ambulate. Yesterday, neurology evaluated patient. She has asterixis secondary to Lyrica. Neurology recommended decreasing Lyrica. This morning, she is doing better. No tremor at rest. Intention tremor is improved. She has some neck stiffness. CT C-spine negative. Neck stiffness most likely from musculoskeletal from when she was lethargic. Ordered for PT for neck stretches. Objective Physical Examination General Exam: Positive: Cooperative Eye Exam: Positive: EOMI; Negative: Sclera icteric ENT Exam: Positive: Atraumatic Neck Exam: Positive: Supple Chest Exam: Positive: Clear to auscultation Heart Exam: Positive: Rate Normal, Regular Rhythm Abdomen Exam: Positive: Normal bowel sounds, Soft; Negative: Tenderness Extremity Exam: Negative: Edema Neuro Exam: Positive: Normal Speech Psych Exam: Positive: Mental status NL, Mood NL Assessment /Plan Assessment Mrs. Martinez is an 80 year old female with chronic neuropathy and multiple spinal cord stimulators s/p removal who is here for worsening tremors/tonic-clonic motions and inability to ambulate. Neurology was consulted, recommendations appreciated. Patient was not able to tolerate Baclofen 10mg TID (increased lethargy). EEG demonstrates encephalopathy. MRI unable to obtain due to pacemaker. Neurology evaluated patient and patient's tremors is asterixis induced by Lyrica. Decreased Lyrica dosage and patient is doing better. Plan/VTE VTE Prophylaxis Ordered?: Yes Plan 1. Severe tremors affecting ADLs and ambulation//Asterixis secondary to Lyrica -Tremors worse with activity, better at rest -Patient unable to ambulate -Neurology consulted, recommendations appreciated -TSH 0.7, Copper 171, Vitamin B1 (Pending), and Vitamin B12 1494 -EEG demonstrates encephalopathy -Unable to obtain MRI due to pacemaker -Unable to tolerate baclofen 10mg TID (increased lethargy and nausea) -Decrease Lyrica dosage form 200mg TID to 100mg TID 2. Acute kidney injury -Unknown baseline but creatinine is elevated -Will hold Lasix and irbesartan -US renal negative -UA negative 3. Atrial fibrillation on warfarin -Stable -Continue Lopressor and warfarin -Check INR daily 4. Hypertension -Continue amlodipine -Hold irbesartan. Start hydralazine 25mg PO q6hp SBP >160 5. Chronic pain -Continue tramadol and pregabalin -Pregabalin decreased as it was causing the asterixis/tremors 6. DVT ppx -On Warfarin Disposition: Pending clinical improvement and ability to ambulate. Patient may need rehab/ARU. VS, I&O, 24H, [place] Vital Signs/I&O Vital Signs Date Time Temp Pulse Resp B/P (MAP) Pulse Ox O2 Delivery O2 Flow Rate FiO2 06/17/21 08:30 88 130/81 06/17/21 05:19 96.9 18 92 Nasal Cannula 2.0 I&O- Last 24 Hours up to 6 AM 06/17/21 06:00 Intake Total 1040 ml Balance 1040 ml Laboratory Data 24H LABS Laboratory Tests 2 06/16/21 18:01: Urine Color YELLOW, Urine Appearance HAZY, Urine pH 6.0, Urine Specific [place] 1.018, Urine Protein 2+H, Urine Glucose (UA) NEGATIVE, Urine Ketones TRACEH, Urine Blood NEGATIVE, Urine Nitrite NEGATIVE, Urine Bilirubin NEGATIVE, Urine Urobilinogen 0.2, Urine Leukocyte Esterase NEGATIVE, Urine WBC (Auto) 1, Urine RBC (Auto) 0, Urine Hyaline Casts (Auto) 0, Urine Bacteria (Auto) NEGATIVE, Urine Squamous Epithelial Cells 0, Urine Mucus (Auto) SMALL, Urine Sperm (Auto) 06/17/21 05:36: Nucleated Red Blood Cells % (auto) 0.0, Prothrombin Time 37.3H, Prothromb Time International Ratio 3.67, Anion Gap 4L, Glomerular Filtration Rate 48.6, Calcium Level 9.6 CBC/BMP Laboratory Tests 06/17/21 05:36 Microbiology Microbiology 06/15/21 Blood Culture - Preliminary, Resulted No Growth after 48 hours. All Specime... 06/13/21 Blood Culture - Preliminary, Resulted No Growth after 72 hours. All specime... ELEANOR SCHMITZ DO Jun 17, 2021 14:12
[2021-06-17] MEDS: ATORVASTATIN 20 MG TAB PO SCH (17:20)
[2021-06-17 20:08] LABS: VITAMIN B1 LEVEL WHOLE BLOOD 301.3 nmol/L (66.5-200.0)
[2021-06-17] MEDS: cefTRIAXone SOD 1 GM in D5W MINI-BAG PLUS 50 ML IV SCH (20:42)
[2021-06-17] MEDS: TAMSULOSIN 0.4 MG CAP PO SCH (20:43)
[2021-06-17] MEDS: MICONAZOLE-7 VAGINAL 2% CREAM 47.7 GM PV SCH (20:43)
[2021-06-17 22:00] VITALS: BP 124/70
[2021-06-18 06:00] VITALS: BP 125/72
[2021-06-18] MEDS: SODIUM CHLORIDE 0.9% INJ 10 ML SYR IV SCH ×2 (06:24→17:55)
[2021-06-18 06:33] LABS: HEMATOCRIT 45.4 % (36.0-47.0); HEMOGLOBIN 15.2 g/dl (12.0-15.5); MEAN CORPUSCULAR HEMOGLOBIN 29.8 pg (27.0-33.0); MEAN CORPUSCULAR HGB CONC 33.5 g/dl (32.0-36.5); PLATELET COUNT, AUTOMATED 130 10^3/uL (150-450); WHITE BLOOD COUNT 13.1 10^3/uL (4.0-10.0)
[2021-06-18 06:50] LABS: INR 4.61; PROTHROMBIN TIME 44.6 SECONDS (12.5-14.3)
[2021-06-18 07:01] LABS: BLOOD UREA NITROGEN 58 MG/DL (7-18); CALCIUM LEVEL 9.2 MG/DL (8.8-10.2); CARBON DIOXIDE LEVEL 29 MEQ/L (21-32); CHLORIDE LEVEL 111 MEQ/L (98-107); CREATININE FOR GFR 0.94 MG/DL (0.55-1.30); GLOMERULAR FILTRATION RATE > 60.0 (>32); GLUCOSE, FASTING 108 MG/DL (70-100); POTASSIUM SERUM 3.8 MEQ/L (3.5-5.1); SODIUM LEVEL 145 MEQ/L (136-145)
[2021-06-18] MEDS ORDERED: PHYTONADIONE 1.25 MG 1/4 TAB PO ONE (09:00)
[2021-06-18] MEDS: NS 1,000 ML IV SCH ×2 (10:30→17:55)
[2021-06-18] MEDS: PANTOPRAZOLE 40MG VIAL (C9113 PER 1) IV SCH (10:31)
[2021-06-18] MEDS: MULTIVITAMINS/MINERALS THERAP 1 TAB PO SCH ×2 (10:31→20:46)
[2021-06-18] MEDS: amLODIPine 5 MG TAB PO SCH (10:31)
[2021-06-18] MEDS: FUROSEMIDE 20 MG TAB PO SCH (10:32)
[2021-06-18] MEDS: PERCOCET 5MG/325MG TAB PO PRN ×2 (10:32→17:53)
[2021-06-18] MEDS: METOPROLOL TART 50 MG TAB PO SCH ×2 (10:33→20:46)
[2021-06-18] MEDS: PREGABALIN 100 MG CAP (LYRICA) PO SCH ×3 (10:33→20:46)
[2021-06-18] MEDS: SUCRALFATE SUSP 1GM/10ML UD PO SCH ×4 (10:34→20:45)
[2021-06-18] MEDS: NYSTATIN 100,000 UNITS/GM TOPICAL PWD 15 GM TOP SCH ×2 (10:34→20:47)
[2021-06-18 14:06] VITALS: BP 124/74
--- NOTE | 2021-06-18 15:30 | IPNPDOC ---
Subjective Date Seen The patient was seen on 06/18/21. Subjective Chief Complaint/HPI Mrs. Martinez is an 80 year old female with chronic neuropathy and multiple spinal cord stimulators s/p removal who is here for worsening tremors/tonic-clonic motions and inability to ambulate. This morning, she is more awake and alert. Still having neck pain and stiffness. Physical therapy worked with patient and recommended trying hot compress. Otherwise, patient denies chest pain or dyspnea. She feels that the tremors are improved. Placed ARU screen today. Objective Physical Examination General Exam: Positive: Alert, Cooperative Eye Exam: Positive: EOMI; Negative: Sclera icteric ENT Exam: Positive: Atraumatic Neck Exam: Negative: Supple Chest Exam: Positive: Clear to auscultation Heart Exam: Positive: Rate Normal, Regular Rhythm Abdomen Exam: Positive: Normal bowel sounds, Soft; Negative: Tenderness Extremity Exam: Negative: Edema Neuro Exam: Positive: Normal Speech Psych Exam: Positive: Mental status NL, Mood NL Assessment /Plan Assessment Mrs. Martinez is an 80 year old female with chronic neuropathy and multiple spinal cord stimulators s/p removal who is here for worsening tremors/tonic-clonic motions and inability to ambulate. Neurology was consulted, recommendations appreciated. Patient was not able to tolerate Baclofen 10mg TID (increased lethargy). EEG demonstrates encephalopathy. MRI unable to obtain due to pacemaker. Neurology evaluated patient and patient's tremors is asterixis induced by Lyrica. Decreased Lyrica dosage and patient is doing better. Plan/VTE VTE Prophylaxis Ordered?: Yes Plan 1. Severe tremors affecting ADLs and ambulation//Asterixis secondary to Lyrica -Tremors worse with activity, better at rest -Patient unable to ambulate -Neurology consulted, recommendations appreciated -TSH 0.7, Copper 171, Vitamin B1 (Pending), and Vitamin B12 1494 -EEG demonstrates encephalopathy -Unable to obtain MRI due to pacemaker -Unable to tolerate baclofen 10mg TID (increased lethargy and nausea) -Decrease Lyrica dosage form 200mg TID to 100mg TID 2. Acute kidney injury -Unknown baseline but creatinine is elevated -Will hold Lasix and irbesartan - renal negative -UA negative -Resolved 3. Atrial fibrillation on warfarin -Stable -Continue Lopressor and warfarin -Check INR daily 4. Hypertension -Continue amlodipine -Hold irbesartan. Start hydralazine 25mg PO q6hp SBP >160 5. Chronic pain -Continue tramadol and pregabalin -Pregabalin decreased as it was causing the asterixis/tremors 6. DVT ppx -On Warfarin Disposition: ARU screen placed VS, I&O, 24H, [place] Vital Signs/I&O Vital Signs Date Time Temp Pulse Resp B/P (MAP) Pulse Ox O2 Delivery O2 Flow Rate FiO2 06/18/21 14:06 98.4 86 16 124/74 (91) 92 Nasal Cannula 2.0 I&O- Last 24 Hours up to 6 AM 06/18/21 06:00 Intake Total 1210 ml Output Total 500 ml Balance 710 ml Laboratory Data 24H LABS Laboratory Tests 2 06/18/21 06:15: Nucleated Red Blood Cells % (auto) 0.0, Prothrombin Time 44.6H, Prothromb Time International Ratio 4.61, Anion Gap 5L, Glomerular Filtration Rate > 60.0, Calcium Level 9.2 CBC/BMP Laboratory Tests 06/18/21 06:15 Microbiology Microbiology 06/15/21 Blood Culture - Preliminary, Resulted No Growth after 72 hours. All specime... 06/13/21 Blood Culture - Final, Complete NO GROWTH AFTER 5 DAYS ELEANOR SCHMITZ DO Jun 18, 2021 15:30
[2021-06-18] MEDS: ATORVASTATIN 20 MG TAB PO SCH (17:52)
[2021-06-18] MEDS: TAMSULOSIN 0.4 MG CAP PO SCH (20:46)
[2021-06-18] MEDS: cefTRIAXone SOD 1 GM in D5W MINI-BAG PLUS 50 ML IV SCH (20:47)
[2021-06-18] MEDS: MICONAZOLE-7 VAGINAL 2% CREAM 47.7 GM PV SCH (21:44)
[2021-06-18 22:00] VITALS: BP 144/72
[2021-06-19] MEDS: PERCOCET 5MG/325MG TAB PO PRN ×3 (04:53→20:40)
[2021-06-19 06:00] VITALS: BP 132/77
[2021-06-19] MEDS: SODIUM CHLORIDE 0.9% INJ 10 ML SYR IV SCH ×2 (06:01→17:32)
[2021-06-19 06:34] LABS: HEMATOCRIT 43.2 % (36.0-47.0); HEMOGLOBIN 14.3 g/dl (12.0-15.5); MEAN CORPUSCULAR HGB CONC 33.1 g/dl (32.0-36.5); MEAN CORPUSCULAR VOLUME 90.6 fl (80.0-96.0); PLATELET COUNT, AUTOMATED 126 10^3/uL (150-450); RED BLOOD COUNT 4.77 10^6/uL (4.00-5.40)
[2021-06-19 06:49] LABS: BLOOD UREA NITROGEN 43 MG/DL (7-18); CALCIUM LEVEL 8.4 MG/DL (8.8-10.2); CARBON DIOXIDE LEVEL 30 MEQ/L (21-32); CHLORIDE LEVEL 111 MEQ/L (98-107); CREATININE FOR GFR 0.79 MG/DL (0.55-1.30); GLOMERULAR FILTRATION RATE > 60.0 (>32); GLUCOSE, FASTING 103 MG/DL (70-100); POTASSIUM SERUM 3.3 MEQ/L (3.5-5.1); SODIUM LEVEL 145 MEQ/L (136-145)
[2021-06-19] MEDS ORDERED: POTASSIUM CHLORIDE 10 MEQ SR TABLET PO ONE (08:00)
[2021-06-19 08:17] LABS: INR 3.5; PROTHROMBIN TIME 35.4 SECONDS (12.7-14.5)
[2021-06-19] MEDS: FLUCONAZOLE 50MG TABLET PO SCH (08:18)
[2021-06-19] MEDS: MULTIVITAMINS/MINERALS THERAP 1 TAB PO SCH ×2 (08:18→20:39)
[2021-06-19] MEDS: SUCRALFATE SUSP 1GM/10ML UD PO SCH ×4 (08:18→20:39)
[2021-06-19] MEDS: METOPROLOL TART 50 MG TAB PO SCH ×2 (08:20→20:41)
[2021-06-19] MEDS: amLODIPine 5 MG TAB PO SCH (08:21)
[2021-06-19] MEDS: FUROSEMIDE 20 MG TAB PO SCH (08:21)
[2021-06-19] MEDS: NYSTATIN 100,000 UNITS/GM TOPICAL PWD 15 GM TOP SCH ×2 (08:22→20:40)
[2021-06-19] MEDS: NS 1,000 ML IV SCH ×2 (09:00→19:59)
[2021-06-19] MEDS: PREGABALIN 100 MG CAP (LYRICA) PO SCH ×3 (09:56→20:39)
[2021-06-19] MEDS: PANTOPRAZOLE 40MG VIAL (C9113 PER 1) IV SCH (09:56)
--- NOTE | 2021-06-19 09:57 | IPNPDOC ---
Subjective Date Seen The patient was seen on 06/19/21. Subjective Chief Complaint/HPI Mrs. Martinez is an 80 year old female with chronic neuropathy and multiple spinal cord stimulators s/p removal who is here for worsening tremors/tonic-clonic motions and inability to ambulate. This morning, she denies any chest pain or dyspnea. Still has some neck stiffness, but heating pad help with the pain. Patient will need rehab. Objective Physical Examination General Exam: Positive: Alert, Cooperative Eye Exam: Positive: EOMI; Negative: Sclera icteric ENT Exam: Positive: Atraumatic Neck Exam: Negative: Supple Chest Exam: Positive: Clear to auscultation Heart Exam: Positive: Rate Normal, Regular Rhythm Abdomen Exam: Positive: Normal bowel sounds, Soft; Negative: Tenderness Extremity Exam: Negative: Edema Neuro Exam: Positive: Normal Speech Psych Exam: Positive: Mental status NL, Mood NL Assessment /Plan Assessment Mrs. Martinez is an 80 year old female with chronic neuropathy and multiple spinal cord stimulators s/p removal who is here for worsening tremors/tonic-clonic motions and inability to ambulate. Neurology was consulted, recommendations appreciated. Patient was not able to tolerate Baclofen 10mg TID (increased lethargy). EEG demonstrates encephalopathy. MRI unable to obtain due to pacemaker. Neurology evaluated patient and patient's tremors is asterixis induced by Lyrica. Decreased Lyrica dosage and patient is doing better. Plan/VTE VTE Prophylaxis Ordered?: Yes Plan 1. Severe tremors affecting ADLs and ambulation//Asterixis secondary to Lyrica -Tremors worse with activity, better at rest -Patient unable to ambulate -Neurology consulted, recommendations appreciated -TSH 0.7, Copper 171, Vitamin B1 301, and Vitamin B12 1494 -EEG demonstrates encephalopathy -Unable to obtain MRI due to pacemaker -Unable to tolerate baclofen 10mg TID (increased lethargy and nausea) -Decrease Lyrica dosage form 200mg TID to 100mg TID -Resolved 2. Acute kidney injury -Unknown baseline but creatinine is elevated -Will hold Lasix and irbesartan - renal negative -UA negative -Resolved 3. Atrial fibrillation on warfarin -Stable -Continue Lopressor and warfarin -Check INR daily 4. Hypertension -Continue amlodipine -Hold irbesartan. Start hydralazine 25mg PO q6hp SBP >160 5. Chronic pain -Continue tramadol and pregabalin -Pregabalin decreased as it was causing the asterixis/tremors 6. DVT ppx -On Warfarin -Warfarin held as supratherapeutic Disposition: ARU screen placed VS, I&O, 24H, [place] Vital Signs/I&O Vital Signs Date Time Temp Pulse Resp B/P (MAP) Pulse Ox O2 Delivery O2 Flow Rate FiO2 06/19/21 08:21 80 136/88 06/19/21 06:00 96.8 20 99 Nasal Cannula 2.0 I&O- Last 24 Hours up to 6 AM 06/19/21 06:00 Intake Total 2110 ml Output Total 650 ml Balance 1460 ml Laboratory Data 24H LABS Laboratory Tests 2 06/19/21 06:07: Nucleated Red Blood Cells % (auto) 0.0, Anion Gap 4L, Glomerular Filtration Rate > 60.0, Calcium Level 8.4L 06/19/21 07:49: Prothrombin Time 35.4H, Prothromb Time International Ratio 3.50 CBC/BMP Laboratory Tests 06/19/21 06:07 Microbiology Microbiology 06/15/21 Blood Culture - Preliminary, Resulted No Growth after 72 hours. All specime... 06/13/21 Blood Culture - Final, Complete NO GROWTH AFTER 5 DAYS ELEANOR SCHMITZ DO Jun 19, 2021 09:57
[2021-06-19 14:00] VITALS: BP 118/73
[2021-06-19] MEDS: ATORVASTATIN 20 MG TAB PO SCH (17:30)
[2021-06-19] MEDS: cefTRIAXone SOD 1 GM in D5W MINI-BAG PLUS 50 ML IV SCH (19:59)
[2021-06-19] MEDS: DULoxetine 30 MG CAP (CYMBALTA) PO SCH (20:39)
[2021-06-19] MEDS: TAMSULOSIN 0.4 MG CAP PO SCH (20:39)
[2021-06-19] MEDS: MICONAZOLE-7 VAGINAL 2% CREAM 47.7 GM PV SCH (20:40)
[2021-06-19 22:00] VITALS: BP 115/72
[2021-06-20] MEDS: SODIUM CHLORIDE 0.9% INJ 10 ML SYR IV SCH ×2 (05:49→17:29)
[2021-06-20 06:00] VITALS: BP 109/68
[2021-06-20 06:11] LABS: HEMATOCRIT 41.3 % (36.0-47.0); HEMOGLOBIN 13.3 g/dl (12.0-15.5); MEAN CORPUSCULAR HEMOGLOBIN 29.8 pg (27.0-33.0); MEAN CORPUSCULAR HGB CONC 32.2 g/dl (32.0-36.5); MEAN CORPUSCULAR VOLUME 92.4 fl (80.0-96.0); PLATELET COUNT, AUTOMATED 120 10^3/uL (150-450); RED BLOOD COUNT 4.47 10^6/uL (4.00-5.40); WHITE BLOOD COUNT 9.4 10^3/uL (4.0-10.0)
[2021-06-20 06:21] LABS: INR 3.19
[2021-06-20 06:34] LABS: BLOOD UREA NITROGEN 34 MG/DL (7-18); CALCIUM LEVEL 8.1 MG/DL (8.8-10.2); CARBON DIOXIDE LEVEL 28 MEQ/L (21-32); CHLORIDE LEVEL 111 MEQ/L (98-107); CREATININE FOR GFR 0.75 MG/DL (0.55-1.30); GLOMERULAR FILTRATION RATE > 60.0 (>32); GLUCOSE, FASTING 94 MG/DL (70-100); POTASSIUM SERUM 3.6 MEQ/L (3.5-5.1); SODIUM LEVEL 143 MEQ/L (136-145)
[2021-06-20] MEDS: PANTOPRAZOLE 40MG VIAL (C9113 PER 1) IV SCH (08:28)
[2021-06-20] MEDS: SUCRALFATE SUSP 1GM/10ML UD PO SCH ×4 (08:28→20:52)
[2021-06-20] MEDS: MULTIVITAMINS/MINERALS THERAP 1 TAB PO SCH ×2 (08:28→20:52)
[2021-06-20] MEDS: FUROSEMIDE 20 MG TAB PO SCH (08:29)
[2021-06-20] MEDS: amLODIPine 5 MG TAB PO SCH (08:29)
[2021-06-20] MEDS: PREGABALIN 100 MG CAP (LYRICA) PO SCH ×3 (08:30→20:52)
[2021-06-20] MEDS: METOPROLOL TART 50 MG TAB PO SCH ×2 (08:30→20:52)
[2021-06-20] MEDS: NS 1,000 ML IV SCH ×2 (08:31→20:29)
[2021-06-20] MEDS: NYSTATIN 100,000 UNITS/GM TOPICAL PWD 15 GM TOP SCH ×2 (08:31→20:53)
--- NOTE | 2021-06-20 12:59 | IPNPDOC ---
Subjective Date Seen The patient was seen on 06/20/21. Subjective Chief Complaint/HPI Mrs. Martinez is an 80 year old female with chronic neuropathy and multiple spinal cord stimulators s/p removal who is here for worsening tremors/tonic-clonic motions and inability to ambulate. She was seen this morning. Denies chest pain or dyspnea. Patient will need rehab, will address with team tomorrow. Objective Physical Examination General Exam: Positive: Alert, Cooperative Eye Exam: Positive: EOMI; Negative: Sclera icteric ENT Exam: Positive: Atraumatic Neck Exam: Negative: Supple Chest Exam: Positive: Clear to auscultation Heart Exam: Positive: Rate Normal, Regular Rhythm Abdomen Exam: Positive: Normal bowel sounds, Soft; Negative: Tenderness Extremity Exam: Negative: Edema Neuro Exam: Positive: Normal Speech Psych Exam: Positive: Mental status NL, Mood NL Assessment /Plan Assessment Mrs. Martinez is an 80 year old female with chronic neuropathy and multiple spinal cord stimulators s/p removal who is here for worsening tremors/tonic-clonic laura ons and inability to ambulate. Neurology was consulted, recommendations appreciated. Patient was not able to tolerate Baclofen 10mg TID (increased lethargy). EEG demonstrates encephalopathy. MRI unable to obtain due to pacemaker. Neurology evaluated patient and patient's tremors is asterixis induced by Lyrica. Decreased Lyrica dosage and patient is doing better. I've added on Cymbalta to help with the neuropathy Plan/VTE VTE Prophylaxis Ordered?: Yes Plan 1. Severe tremors affecting ADLs and ambulation//Asterixis secondary to Lyrica -Tremors worse with activity, better at rest -Patient unable to ambulate -Neurology consulted, recommendations appreciated -TSH 0.7, Copper 171, Vitamin B1 301, and Vitamin B12 1494 -EEG demonstrates encephalopathy -Unable to obtain MRI due to pacemaker -Unable to tolerate baclofen 10mg TID (increased lethargy and nausea) -Decrease Lyrica dosage form 200mg TID to 100mg TID -Resolved 2. Acute kidney injury -Unknown baseline but creatinine is elevated -Will hold irbesartan -US renal negative -UA negative -Resolved 3. Atrial fibrillation on warfarin -Stable -Continue Lopressor and warfarin -Check INR daily 4. Hypertension -Continue amlodipine -Hold irbesartan. Start hydralazine 25mg PO q6hp SBP >160 5. Chronic pain -Continue tramadol and pregabalin -Pregabalin decreased as it was causing the asterixis/tremors 6. DVT ppx -On Warfarin -Warfarin held as supratherapeutic Disposition: ARU screen placed VS, I&O, 24H, Fishbone Vital Signs/I&O Vital Signs Date Time Temp Pulse Resp B/P (MAP) Pulse Ox O2 Delivery O2 Flow Rate FiO2 06/20/21 08:37 2.0 06/20/21 08:29 80 109/68 06/20/21 06:00 97.4 14 92 Nasal Cannula I&O- Last 24 Hours up to 6 AM 06/20/21 06:00 Intake Total 3130 ml Output Total 600 ml Balance 2530 ml Laboratory Data 24H LABS Laboratory Tests 2 06/20/21 05:54: Nucleated Red Blood Cells % (auto) 0.0, Prothrombin Time 33.0H, Prothromb Time International Ratio 3.19, Anion Gap 4L, Glomerular Filtration Rate > 60.0, Calcium Level 8.1L CBC/BMP Laboratory Tests 06/20/21 05:54 Microbiology Microbiology 06/15/21 Blood Culture - Final, Complete NO GROWTH AFTER 5 DAYS 06/13/21 Blood Culture - Final, Complete NO GROWTH AFTER 5 DAYS ELEANOR SCHMITZ DO Jun 20, 2021 12:59
[2021-06-20 14:00] VITALS: BP 107/67
[2021-06-20] MEDS: ATORVASTATIN 20 MG TAB PO SCH (17:35)
[2021-06-20] MEDS: cefTRIAXone SOD 1 GM in D5W MINI-BAG PLUS 50 ML IV SCH (20:51)
[2021-06-20] MEDS: TAMSULOSIN 0.4 MG CAP PO SCH (20:52)
[2021-06-20] MEDS: DULoxetine 30 MG CAP (CYMBALTA) PO SCH (20:52)
[2021-06-20] MEDS: MICONAZOLE-7 VAGINAL 2% CREAM 47.7 GM PV SCH (20:53)
[2021-06-20 22:00] VITALS: BP 125/68
[2021-06-20] MEDS: PERCOCET 5MG/325MG TAB PO PRN (22:38)
[2021-06-21] MEDS: SODIUM CHLORIDE 0.9% INJ 10 ML SYR IV SCH ×2 (05:30→17:45)
[2021-06-21 05:51] LABS: HEMOGLOBIN 13.1 g/dl (12.0-15.5); MEAN CORPUSCULAR HEMOGLOBIN 29.9 pg (27.0-33.0); MEAN CORPUSCULAR HGB CONC 32.8 g/dl (32.0-36.5); MEAN CORPUSCULAR VOLUME 91.3 fl (80.0-96.0); PLATELET COUNT, AUTOMATED 130 10^3/uL (150-450); RED BLOOD COUNT 4.38 10^6/uL (4.00-5.40); WHITE BLOOD COUNT 6.7 10^3/uL (4.0-10.0)
[2021-06-21 06:00] VITALS: BP 145/84
[2021-06-21 06:07] LABS: INR 2.75; PROTHROMBIN TIME 29.4 SECONDS (12.7-14.5)
[2021-06-21 06:08] LABS: BLOOD UREA NITROGEN 22 MG/DL (7-18); CALCIUM LEVEL 7.8 MG/DL (8.8-10.2); CARBON DIOXIDE LEVEL 30 MEQ/L (21-32); CHLORIDE LEVEL 110 MEQ/L (98-107); CREATININE FOR GFR 0.59 MG/DL (0.55-1.30); GLOMERULAR FILTRATION RATE > 60.0 (>32); GLUCOSE, FASTING 81 MG/DL (70-100); POTASSIUM SERUM 3.7 MEQ/L (3.5-5.1); SODIUM LEVEL 144 MEQ/L (136-145)
[2021-06-21] MEDS: PREGABALIN 100 MG CAP (LYRICA) PO SCH ×3 (08:03→20:52)
[2021-06-21] MEDS: amLODIPine 5 MG TAB PO SCH (08:03)
[2021-06-21] MEDS: FUROSEMIDE 20 MG TAB PO SCH (08:03)
[2021-06-21] MEDS: METOPROLOL TART 50 MG TAB PO SCH ×2 (08:03→20:52)
[2021-06-21] MEDS: MULTIVITAMINS/MINERALS THERAP 1 TAB PO SCH ×2 (08:03→20:53)
[2021-06-21] MEDS: SUCRALFATE SUSP 1GM/10ML UD PO SCH ×4 (08:03→20:54)
[2021-06-21] MEDS: PANTOPRAZOLE 40MG VIAL (C9113 PER 1) IV SCH (08:03)
[2021-06-21] MEDS: NYSTATIN 100,000 UNITS/GM TOPICAL PWD 15 GM TOP SCH ×2 (08:05→20:49)
[2021-06-21] MEDS: NS 1,000 ML IV SCH (08:05)
--- NOTE | 2021-06-21 12:01 | IPNPDOC ---
Subjective Date Seen The patient was seen on 06/21/21. Subjective Chief Complaint/HPI Mrs. Martinez is an 80 year old female with chronic neuropathy and multiple spinal cord stimulators s/p removal who is here for worsening tremors/tonic-clonic motions and inability to ambulate. She denies any chest pain or dyspnea. ARU screen has been placed, and pending insurance prior authorization. Objective Physical Examination General Exam: Positive: Alert, Cooperative Eye Exam: Positive: EOMI; Negative: Sclera icteric ENT Exam: Positive: Atraumatic Neck Exam: Negative: Supple Chest Exam: Positive: Clear to auscultation Heart Exam: Positive: Rate Normal, Regular Rhythm Abdomen Exam: Positive: Normal bowel sounds, Soft; Negative: Tenderness Extremity Exam: Negative: Edema Neuro Exam: Positive: Normal Speech Psych Exam: Positive: Mental status NL, Mood NL Assessment /Plan Assessment Mrs. Martinez is an 80 year old female with chronic neuropathy and multiple spinal cord stimulators s/p removal who is here for worsening tremors/tonic-clonic motions and inability to ambulate. Neurology was consulted, recommendations appreciated. Patient was not able to tolerate Baclofen 10mg TID (increased lethargy). EEG demonstrates encephalopathy. MRI unable to obtain due to pacemaker. Neurology evaluated patient and patient's tremors is asterixis induced by L yrica. Decreased Lyrica dosage and patient is doing better. I've added on Cymbalta to help with the neuropathy Plan/VTE VTE Prophylaxis Ordered?: Yes Plan 1. Severe tremors affecting ADLs and ambulation//Asterixis secondary to Lyrica -Tremors worse with activity, better at rest -Patient unable to ambulate -Neurology consulted, recommendations appreciated -TSH 0.7, Copper 171, Vitamin B1 301, and Vitamin B12 1494 -EEG demonstrates encephalopathy -Unable to obtain MRI due to pacemaker -Unable to tolerate baclofen 10mg TID (increased lethargy and nausea) -Decrease Lyrica dosage form 200mg TID to 100mg TID -Resolved 2. Acute kidney injury -Unknown baseline but creatinine is elevated -Will hold irbesartan - renal negative -UA negative -Resolved 3. Atrial fibrillation on warfarin -Stable -Continue Lopressor and warfarin -Check INR daily 4. Hypertension -Continue amlodipine -Restart irbesartan at a lower dose 5. Chronic pain -Continue tramadol and pregabalin -Pregabalin decreased as it was causing the asterixis/tremors 6. DVT ppx -On Warfarin Disposition: ARU screen placed, pending insurance approval. While waiting for insurance approval, will need to continue monitoring INR and prescribing warfarin. VS, I&O, 24H, Fishbone Vital Signs/I&O Vital Signs Date Time Temp Pulse Resp B/P (MAP) Pulse Ox O2 Delivery O2 Flow Rate FiO2 06/21/21 08:03 82 145/84 06/21/21 07:55 2.0 06/21/21 06:00 97.8 18 93 Nasal Cannula I&O- Last 24 Hours up to 6 AM 06/21/21 06:00 Intake Total 1790 ml Output Total 890 ml Balance 900 ml Laboratory Data 24H LABS Laboratory Tests 2 06/21/21 05:28: Nucleated Red Blood Cells % (auto) 0.0, Prothrombin Time 29.4H, Prothromb Time International Ratio 2.75, Anion Gap 4L, Glomerular Filtration Rate > 60.0, Calcium Level 7.8L CBC/BMP Laboratory Tests 06/21/21 05:28 Microbiology Microbiology 06/15/21 Blood Culture - Final, Complete NO GROWTH AFTER 5 DAYS 06/13/21 Blood Culture - Final, Complete NO GROWTH AFTER 5 DAYS ELEANOR SCHMITZ DO Jun 21, 2021 12:01
[2021-06-21] MEDS: IRBESARTAN 150MG TAB PO SCH (13:25)
[2021-06-21 14:00] VITALS: BP 118/68
[2021-06-21] MEDS: PERCOCET 5MG/325MG TAB PO PRN (16:21)
[2021-06-21] MEDS ORDERED: WARFARIN SOD 3MG TAB PO ONE (17:00)
[2021-06-21] MEDS: ATORVASTATIN 20 MG TAB PO SCH (17:44)
[2021-06-21] MEDS: MICONAZOLE-7 VAGINAL 2% CREAM 47.7 GM PV SCH (20:49)
[2021-06-21] MEDS: DULoxetine 30 MG CAP (CYMBALTA) PO SCH (20:49)
[2021-06-21] MEDS: cefTRIAXone SOD 1 GM in D5W MINI-BAG PLUS 50 ML IV SCH (20:49)
[2021-06-21] MEDS: TAMSULOSIN 0.4 MG CAP PO SCH (20:49)
[2021-06-21 20:51] VITALS: BP 115/69
[2021-06-22 05:44] VITALS: BP 116/71
[2021-06-22] MEDS: SODIUM CHLORIDE 0.9% INJ 10 ML SYR IV SCH ×2 (05:44→18:19)
[2021-06-22 06:13] LABS: HEMOGLOBIN 13.1 g/dl (12.0-15.5); MEAN CORPUSCULAR HEMOGLOBIN 29.6 pg (27.0-33.0); MEAN CORPUSCULAR HGB CONC 32.8 g/dl (32.0-36.5); MEAN CORPUSCULAR VOLUME 90.5 fl (80.0-96.0); PLATELET COUNT, AUTOMATED 124 10^3/uL (150-450); RED BLOOD COUNT 4.42 10^6/uL (4.00-5.40); WHITE BLOOD COUNT 6.5 10^3/uL (4.0-10.0)
[2021-06-22 06:28] LABS: INR 2.28; PROTHROMBIN TIME 25.6 SECONDS (12.7-14.5)
[2021-06-22 06:43] LABS: BLOOD UREA NITROGEN 20 MG/DL (7-18); CALCIUM LEVEL 8.3 MG/DL (8.8-10.2); CARBON DIOXIDE LEVEL 34 MEQ/L (21-32); CHLORIDE LEVEL 106 MEQ/L (98-107); CREATININE FOR GFR 0.59 MG/DL (0.55-1.30); GLOMERULAR FILTRATION RATE > 60.0 (>32); GLUCOSE, FASTING 76 MG/DL (70-100); POTASSIUM SERUM 3.3 MEQ/L (3.5-5.1); SODIUM LEVEL 142 MEQ/L (136-145)
[2021-06-22] MEDS: SUCRALFATE SUSP 1GM/10ML UD PO SCH ×4 (07:18→20:22)
[2021-06-22] MEDS: MULTIVITAMINS/MINERALS THERAP 1 TAB PO SCH ×2 (08:53→20:23)
[2021-06-22] MEDS: FUROSEMIDE 20 MG TAB PO SCH (08:53)
[2021-06-22] MEDS: PREGABALIN 100 MG CAP (LYRICA) PO SCH ×3 (08:53→20:23)
[2021-06-22] MEDS: FLUCONAZOLE 50MG TABLET PO SCH (08:53)
[2021-06-22] MEDS: PERCOCET 5MG/325MG TAB PO PRN ×2 (08:53→16:05)
[2021-06-22] MEDS: IRBESARTAN 150MG TAB PO SCH (08:54)
[2021-06-22] MEDS: METOPROLOL TART 50 MG TAB PO SCH ×2 (08:54→20:26)
[2021-06-22] MEDS: PANTOPRAZOLE 40MG TAB (PROTONIX) PO SCH (08:54)
[2021-06-22] MEDS: amLODIPine 5 MG TAB PO SCH (08:55)
[2021-06-22] MEDS: NYSTATIN 100,000 UNITS/GM TOPICAL PWD 15 GM TOP SCH ×2 (08:55→20:27)
[2021-06-22 14:00] VITALS: BP 113/69
[2021-06-22] MEDS ORDERED: WARFARIN SOD 3MG TAB PO ONE (17:00)
[2021-06-22] MEDS: ATORVASTATIN 20 MG TAB PO SCH (18:19)
--- NOTE | 2021-06-22 20:15 | IPNPDOC ---
Subjective Date Seen The patient was seen on 06/22/21. Subjective Chief Complaint/HPI Patient was seen and examined at bedside this morning. She had no new complaints. She did not headaches, chest pain, shortness of breath, abdominal pain, nausea, vomiting, problems with urination or bowel movements. Other systems 10 point review of system is negative except for what is noted in the HPI. Objective Physical Examination General Exam: Positive: Alert, Cooperative Eye Exam: Positive: PERRLA, Conjunctiva & lids normal, EOMI; Negative: Sclera icteric ENT Exam: Positive: Atraumatic, Mucous membr. moist/pink, Pharynx Normal Neck Exam: Negative: Supple, JVD Chest Exam: Positive: Clear to auscultation, Normal air movement; Negative: Rales, Wheezing Heart Exam: Positive: Rate Normal, Regular Rhythm, Normal S1, Normal S2; Negative: Tachycardic, Murmurs Abdomen Exam: Positive: Normal bowel sounds, Soft; Negative: Tenderness, Hepatospenomegaly Extremity Exam: Negative: Edema Neuro Exam: Positive: Normal Speech Psych Exam: Positive: Mental status NL, Mood NL, Oriented x 3 Assessment /Plan Assessment #Asterixis -Tremors are worse with activity but not appreciated at rest there has been significant improvements in them since her Lyrica dose has decreased. Neurology recommendations appreciated. #Acute kidney injury -Resolved. Renal ultrasound was negative. Creatinine now at baseline. #Atrial fibrillation -Rate controlled with Lopressor, on systemic anticoagulation with warfarin. Check daily INRs #Hypertension -Continue with amlodipine. Restarted on irbesartan, adjustments to increase if required however blood pressure is stable at this time. #Chronic pain -Continue tramadol and adjusted dose of pregabalin due to tremors #DVT prophylaxis -On warfarin Disposition: Awaiting for insurance approval for ARU. Plan/VTE VTE Prophylaxis Ordered?: Yes VS, I&O, 24H, Fishbone Vital Signs/I&O Vital Signs Date Time Temp Pulse Resp B/P (MAP) Pulse Ox O2 Delivery O2 Flow Rate FiO2 06/22/21 16:35 18 06/22/21 14:00 97.0 90 113/69 (84) 91 Nasal Cannula 2.0 I&O- Last 24 Hours up to 6 AM 06/22/21 06:00 Intake Total 1310 ml Output Total 1450 ml Balance -140 ml Laboratory Data 24H LABS Laboratory Tests 2 06/22/21 05:45: Nucleated Red Blood Cells % (auto) 0.0, Prothrombin Time 25.6H, Prothromb Time International Ratio 2.28, Anion Gap 2L, Glomerular Filtration Rate > 60.0, Calcium Level 8.3L CBC/BMP Laboratory Tests 06/22/21 05:45 Microbiology Microbiology 06/15/21 Blood Culture - Final, Complete NO GROWTH AFTER 5 DAYS 06/13/21 Blood Culture - Final, Complete NO GROWTH AFTER 5 DAYS STEF ALFARO M.D. Jun 22, 2021 18:59
[2021-06-22] MEDS: cefTRIAXone SOD 1 GM in D5W MINI-BAG PLUS 50 ML IV SCH (20:23)
[2021-06-22] MEDS: TAMSULOSIN 0.4 MG CAP PO SCH (20:23)
[2021-06-22] MEDS: DULoxetine 30 MG CAP (CYMBALTA) PO SCH (20:26)
[2021-06-22 22:52] VITALS: BP 112/68
[2021-06-23] MEDS: SODIUM CHLORIDE 0.9% INJ 10 ML SYR IV SCH ×2 (05:18→18:34)
[2021-06-23 05:52] LABS: HEMATOCRIT 38.2 % (36.0-47.0); HEMOGLOBIN 12.7 g/dl (12.0-15.5); MEAN CORPUSCULAR HEMOGLOBIN 29.7 pg (27.0-33.0); MEAN CORPUSCULAR HGB CONC 33.2 g/dl (32.0-36.5); MEAN CORPUSCULAR VOLUME 89.3 fl (80.0-96.0); PLATELET COUNT, AUTOMATED 134 10^3/uL (150-450); RED BLOOD COUNT 4.28 10^6/uL (4.00-5.40); WHITE BLOOD COUNT 6.6 10^3/uL (4.0-10.0)
[2021-06-23 05:54] VITALS: BP 136/81
[2021-06-23 06:03] LABS: INR 2.34
[2021-06-23 06:10] LABS: BLOOD UREA NITROGEN 20 MG/DL (7-18); CALCIUM LEVEL 8.8 MG/DL (8.8-10.2); CARBON DIOXIDE LEVEL 33 MEQ/L (21-32); CHLORIDE LEVEL 105 MEQ/L (98-107); CREATININE FOR GFR 0.61 MG/DL (0.55-1.30); GLOMERULAR FILTRATION RATE > 60.0 (>32); GLUCOSE, FASTING 71 MG/DL (70-100); MAGNESIUM LEVEL 1.4 MG/DL (1.8-2.4); PHOSPHORUS LEVEL 2.5 MG/DL (2.5-4.9); POTASSIUM SERUM 3.2 MEQ/L (3.5-5.1); SODIUM LEVEL 144 MEQ/L (136-145)
[2021-06-23] MEDS: SUCRALFATE SUSP 1GM/10ML UD PO SCH ×5 (07:20→20:51)
[2021-06-23] MEDS ORDERED: MAG SULF 1GM/100ML (MAG RUN) 1 GM in IV 1 EA IV ONE (08:00)
[2021-06-23] MEDS ORDERED: POTASSIUM CHLORIDE 10 MEQ SR TABLET PO ONE (08:00)
[2021-06-23] MEDS: KCL 10MEQ/100ML SWI (KRUN) 10 MEQ in IV 1 EA IV SCH ×2 (08:16→08:20)
[2021-06-23] MEDS: IRBESARTAN 150MG TAB PO SCH (08:16)
[2021-06-23] MEDS: MULTIVITAMINS/MINERALS THERAP 1 TAB PO SCH ×2 (08:16→20:50)
[2021-06-23] MEDS: FUROSEMIDE 20 MG TAB PO SCH (08:16)
[2021-06-23] MEDS: PREGABALIN 100 MG CAP (LYRICA) PO SCH ×3 (08:16→20:49)
[2021-06-23] MEDS: PANTOPRAZOLE 40MG TAB (PROTONIX) PO SCH (08:17)
[2021-06-23] MEDS: METOPROLOL TART 50 MG TAB PO SCH ×2 (08:17→20:50)
[2021-06-23] MEDS: amLODIPine 5 MG TAB PO SCH (08:17)
[2021-06-23] MEDS: NYSTATIN 100,000 UNITS/GM TOPICAL PWD 15 GM TOP SCH ×2 (08:19→20:50)
[2021-06-23] MEDS: PERCOCET 5MG/325MG TAB PO PRN ×2 (08:22→20:54)
[2021-06-23 14:00] VITALS: BP 130/81
--- NOTE | 2021-06-23 16:36 | IPNPDOC ---
Subjective Date Seen The patient was seen on 06/23/21. Subjective Chief Complaint/HPI Patient seen and examined at bedside this morning. She has no new complaints. She reported feeling " great" and was wondering if she could have rehab done at home rather than going to ARU. She denies headaches, chest pain, shortness of breath, abdominal pain, nausea, vomiting, problems with urination or bowel movements. Other systems 10 point review of system is negative except for what is noted in the HPI. Objective Physical Examination Other physical findings General: Lying in bed, no acute distress, obese Head/Neck/Throat: Trachea midline, mucous membranes moist Eyes: Sclera anicteric, PERRLA Thorax: Normal respiratory effort on room air, lungs clear to auscultation bilaterally, no wheezes/rales/rhonchi Cardiovascular: Normal rate, regular rhythm, normal S1, S2; no S3, S4, rubs/gallops/murmurs Abdomen: Bowel sounds present, soft/nontender/nondistended Genitourinary: No CVA tenderness, no Madden in place Musculoskeletal: Moving all extremities, no edema Skin: Warm, dry Neurologic: AAOx3, speech fluent and goal-directed, no focal deficits, grossly intact Assessment /Plan Plan/VTE VTE Prophylaxis Ordered?: Yes Plan #Asterixis -Tremors are worse with activity but not appreciated at rest there has been significant improvements in them since her Lyrica dose has decreased. Neurology recommendations appreciated. #Metabolic alkalosis -We will hold furosemide. Patient is dry on exam. #Acute kidney injury -Resolved. Renal ultrasound was negative. Creatinine now at baseline. #Atrial fibrillation -Rate controlled with Lopressor, on systemic anticoagulation with warfarin. Check daily INRs #Hypertension -Continue with amlodipine. Restarted on irbesartan, adjustments to increase if required however blood pressure is stable at this time. #Chronic pain -Continue tramadol and adjusted dose of pregabalin due to tremors #DVT prophylaxis -On warfarin Disposition: Patient reports that she would not mind having physical therapy done at home versus ARU. She will make a decision on 06/24. VS, I&O, 24H, Fishbone Vital Signs/I&O Vital Signs Date Time Temp Pulse Resp B/P (MAP) Pulse Ox O2 Delivery O2 Flow Rate FiO2 06/22/21 23:25 2.0 06/22/21 22:52 97.4 81 17 112/68 (83) 95 Nasal Cannula I&O- Last 24 Hours up to 6 AM 06/23/21 06:00 Intake Total 1310 ml Output Total 2250 ml Balance -940 ml Laboratory Data 24H LABS Laboratory Tests 2 06/23/21 05:30: Nucleated Red Blood Cells % (auto) 0.0, Prothrombin Time 26.0H, Prothromb Time International Ratio 2.34, Anion Gap 6L, Glomerular Filtration Rate > 60.0, Calcium Level 8.8, Phosphorus Level 2.5, Magnesium Level 1.4L CBC/BMP Laboratory Tests 06/23/21 05:30 Microbiology Microbiology 06/15/21 Blood Culture - Final, Complete NO GROWTH AFTER 5 DAYS 06/13/21 Blood Culture - Final, Complete NO GROWTH AFTER 5 DAYS STEF ALFARO M.D. Jun 23, 2021 07:19
[2021-06-23] MEDS: WARFARIN SOD 3MG TAB PO SCH (16:53)
[2021-06-23] MEDS: ATORVASTATIN 20 MG TAB PO SCH (18:33)
[2021-06-23 20:11] VITALS: BP 131/80
[2021-06-23] MEDS: DULoxetine 30 MG CAP (CYMBALTA) PO SCH (20:50)
[2021-06-23] MEDS: TAMSULOSIN 0.4 MG CAP PO SCH (20:50)
[2021-06-24] MEDS: SODIUM CHLORIDE 0.9% INJ 10 ML SYR IV SCH ×2 (05:08→17:21)
[2021-06-24 06:13] LABS: BLOOD UREA NITROGEN 20 MG/DL (7-18); CALCIUM LEVEL 8.6 MG/DL (8.8-10.2); CARBON DIOXIDE LEVEL 35 MEQ/L (21-32); CHLORIDE LEVEL 105 MEQ/L (98-107); CREATININE FOR GFR 0.63 MG/DL (0.55-1.30); GLOMERULAR FILTRATION RATE > 60.0 (>32); GLUCOSE, FASTING 67 MG/DL (70-100); MAGNESIUM LEVEL 1.5 MG/DL (1.8-2.4); POTASSIUM SERUM 3.4 MEQ/L (3.5-5.1); SODIUM LEVEL 143 MEQ/L (136-145)
[2021-06-24 06:17] VITALS: BP 114/64
[2021-06-24] MEDS: SUCRALFATE SUSP 1GM/10ML UD PO SCH ×4 (07:30→21:00)
[2021-06-24] MEDS: amLODIPine 5 MG TAB PO SCH (09:00)
[2021-06-24] MEDS: IRBESARTAN 150MG TAB PO SCH (09:00)
[2021-06-24] MEDS: METOPROLOL TART 50 MG TAB PO SCH ×2 (09:00→20:42)
[2021-06-24] MEDS: PREGABALIN 100 MG CAP (LYRICA) PO SCH ×3 (09:43→20:41)
[2021-06-24] MEDS: FUROSEMIDE 20 MG TAB PO SCH (09:43)
[2021-06-24] MEDS: NYSTATIN 100,000 UNITS/GM TOPICAL PWD 15 GM TOP SCH ×2 (09:46→20:42)
[2021-06-24] MEDS: MULTIVITAMINS/MINERALS THERAP 1 TAB PO SCH ×2 (09:46→20:41)
[2021-06-24] MEDS: PANTOPRAZOLE 40MG TAB (PROTONIX) PO SCH (09:46)
--- NOTE | 2021-06-24 12:10 | IPNPDOC ---
Subjective Date Seen The patient was seen on 06/24/21. Subjective Chief Complaint/HPI Patient was seen and examined at bedside this morning. She had no new complaints. Overnight no acute events reported. Other systems 10 point review of system is negative except as noted in the HPI Objective Physical Examination Other physical findings General: Lying in bed, no acute distress, obese Head/Neck/Throat: Trachea midline, mucous membranes moist Eyes: Sclera anicteric, PERRLA Thorax: Normal respiratory effort on room air, lungs clear to auscultation bilaterally, no wheezes/rales/rhonchi Cardiovascular: Normal rate, regular rhythm, normal S1, S2; no S3, S4, r ubs/gallops/murmurs Abdomen: Bowel sounds present, soft/nontender/nondistended Genitourinary: No CVA tenderness, no Madden in place Musculoskeletal: Moving all extremities, no edema Skin: Warm, dry Neurologic: AAOx3, speech fluent and goal-directed, no focal deficits, grossly intact Assessment /Plan Plan/VTE VTE Prophylaxis Ordered?: Yes Plan #Asterixis -Tremors are worse with activity but not appreciated at rest there has been significant improvements in them since her Lyrica dose has decreased. Neurology recommendations appreciated. #Acute kidney injury -Resolved. Renal ultrasound was negative. Creatinine now at baseline. #Thyroid nodule -pt asked to have follow up as outpatient. #Atrial fibrillation -Rate controlled with Lopressor, on systemic anticoagulation with warfarin. Check daily INRs #Hypertension -Her blood pressure was on the lower end this morning therefore her antihypertensive required to be held. Will discontinue amlodipine and continue ARB therapy for now. #Chronic pain -Continue tramadol and adjusted dose of pregabalin due to tremors #DVT prophylaxis -On warfarin Disposition: She will be going home with home health/physical therapy on 06/25. VS, I&O, 24H, [place] Vital Signs/I&O Vital Signs Date Time Temp Pulse Resp B/P (MAP) Pulse Ox O2 Delivery O2 Flow Rate FiO2 06/24/21 06:17 98.7 84 18 114/64 (81) 94 Nasal Cannula 1.0 I&O- Last 24 Hours up to 6 AM 06/24/21 06:00 Intake Total 1980 ml Output Total 0 ml Balance 1980 ml Laboratory Data 24H LABS Laboratory Tests 2 06/24/21 05:11: Anion Gap 3L, Glomerular Filtration Rate > 60.0, Calcium Level 8.6L, Phosphorus Level 3.0, Magnesium Level 1.5L CBC/BMP Laboratory Tests 06/24/21 05:11 Microbiology Microbiology 06/15/21 Blood Culture - Final, Complete NO GROWTH AFTER 5 DAYS STEF ALFARO M.D. Jun 24, 2021 06:33
[2021-06-24 14:00] VITALS: BP 134/84
[2021-06-24] MEDS: ATORVASTATIN 20 MG TAB PO SCH (17:21)
[2021-06-24] MEDS: WARFARIN SOD 3MG TAB PO SCH (17:21)
[2021-06-24] MEDS ORDERED: MAGNESIUM OXIDE 400MG TAB (MAG-OX) PO ONE (19:00)
[2021-06-24] MEDS ORDERED: POTASSIUM CHLORIDE 10 MEQ SR TABLET PO ONE (20:00)
[2021-06-24] MEDS: TAMSULOSIN 0.4 MG CAP PO SCH (20:41)
[2021-06-24] MEDS: DULoxetine 30 MG CAP (CYMBALTA) PO SCH (20:41)
[2021-06-24 22:00] VITALS: BP 135/89
[2021-06-25] MEDS: SODIUM CHLORIDE 0.9% INJ 10 ML SYR IV SCH (05:42)
[2021-06-25 06:00] VITALS: BP 113/70
[2021-06-25 06:31] LABS: BLOOD UREA NITROGEN 20 MG/DL (7-18); CALCIUM LEVEL 9.2 MG/DL (8.8-10.2); CARBON DIOXIDE LEVEL 34 MEQ/L (21-32); CHLORIDE LEVEL 106 MEQ/L (98-107); CREATININE FOR GFR 0.58 MG/DL (0.55-1.30); GLOMERULAR FILTRATION RATE > 60.0 (>32); GLUCOSE, FASTING 79 MG/DL (70-100); MAGNESIUM LEVEL 1.5 MG/DL (1.8-2.4); PHOSPHORUS LEVEL 2.7 MG/DL (2.5-4.9); POTASSIUM SERUM 4.2 MEQ/L (3.5-5.1); SODIUM LEVEL 144 MEQ/L (136-145)
[2021-06-25] MEDS: SUCRALFATE SUSP 1GM/10ML UD PO SCH ×2 (08:10→11:04)
[2021-06-25] MEDS: PREGABALIN 100 MG CAP (LYRICA) PO SCH ×2 (08:10→14:41)
[2021-06-25] MEDS: MULTIVITAMINS/MINERALS THERAP 1 TAB PO SCH (08:10)
[2021-06-25 08:11] VITALS: BP 115/71
[2021-06-25] MEDS: IRBESARTAN 150MG TAB PO SCH (08:11)
[2021-06-25] MEDS: FUROSEMIDE 20 MG TAB PO SCH (08:11)
[2021-06-25] MEDS: METOPROLOL TART 50 MG TAB PO SCH (08:11)
[2021-06-25] MEDS: PANTOPRAZOLE 40MG TAB (PROTONIX) PO SCH (08:11)
[2021-06-25] MEDS: NYSTATIN 100,000 UNITS/GM TOPICAL PWD 15 GM TOP SCH (08:13)
[2021-06-25] MEDS ORDERED: LYRI200C PO (12:15)
[2021-06-25] MEDS ORDERED: MAGNESIUM OXIDE 400MG TAB (MAG-OX) PO ONE (13:00)
[2021-06-25] MEDS ORDERED: MAGN400T2 PO (13:52)
--- NOTE | 2021-06-25 13:55 | DS.PDOC ---
Discharge Summary General Date of Admission Jun 13, 2021 at 15:56 Date of Discharge 06/25/21 Primary Care Physician: Shawna David Discharge Summary DIAGNOSIS AT DISCHARGE 1. Asterixis/tremors 2. Acute kidney injury, resolved 3. Hypotensive 4. Thyroid nodule 5. Metabolic alkalosis Ms. Martinez, was seen at [facility] on 06/13/2021 with worsening tremors. She was evaluated by the neurology team and was determined that she had worsening tremors due to the dosage of her Lyrica. Therefore, this was reduced from 200 mg 3 times daily to 100 mg 3 times daily. On admission, she was noted to have acute kidney injury. This was treated with IV fluids and her irbesartan, and furosemide were held until recovery. At the time of discharge, she was noted to have increased bicarbonate (likely contraction alkalosis) therefore she was asked to hold her furosemide until she had a follow-up with her primary care physician. She understood if she had worsening edema or dyspnea that she would resume her furosemide and seek medical attention if her to come to the point before follow-up. She was noted to be hypotensive as well. Her amlodipine has been discontinued. Her irbesartan has been resumed since her renal function was stable. She is encouraged to continue follow-up with a marketing sales manager as well as a primary care physician for management of her congestive heart failure. A neck ct-scan that was done noted a large multinodular thyroid gland with nodules measuring to 5.8 cm on the left, causing mild mass effect on the trachea and esophagus. She complained of no dyspnea or hard time swallowing and was asymptomatic. She was asked to follow-up with her primary care physician for further management of these nodules. She should have an ultrasound done. Her TSH was within normal limits. Showed a The was asked to maintain appointments with her spinal surgeon and pain clinic for ongoing management of her chronic problems pertaining to these specialties. She did work with physical therapy and it was recommended she go to ARU, however, patient wished to have home physical therapy therefore home health has been arranged for her. She was asked to have repeat blood work done (BMP) to check for her bicarbonate level as well as magnesium as this was low and required repletion. She wanted this to be done with her primary care physician. Vital Signs/I&Os Vital Signs Date Time Temp Pulse Resp B/P (MAP) Pulse Ox O2 Delivery O2 Flow Rate FiO2 8/5/21 22:00 97.1 103 19 135/89 (104) 96 Room Air 06/24/21 06:17 1.0 I&O- Last 24 Hours up to 6 AM 06/25/21 06:00 Intake Total 700 ml Balance 700 ml PHYSICAL EXAM General: Lying in bed, no acute distress, obese Head/Neck/Throat: Trachea midline, mucous membranes moist Eyes: Sclera anicteric, no erythema or discharge appreciated bilaterally Thorax: Normal respiratory effort on room air, lungs clear to auscultation bilaterally, no wheezes/rales/rhonchi Cardiovascular: Normal rate, regular rhythm, normal S1, S2; no S3, S4, rubs/gallops/murmurs Abdomen: Bowel sounds present, soft/nontender/nondistended Genitourinary: No CVA tenderness, no Madden in place Musculoskeletal: Moving all extremities, no edema Skin: Warm, dry Neurologic: AAOx3, speech fluent and goal-directed, no focal deficits, grossly intact Laboratory Data Labs 24H Laboratory Tests 2 06/25/21 05:46: CBC/BMP Microbiology Microbiology 06/15/21 Blood Culture - Final, Complete NO GROWTH AFTER 5 DAYS Discharge Medications Scheduled Acetaminophen/Diphenhydramine (Acetaminophen Pm Caplet) 1 Each Tablet, 2 TAB PO QHS, (Reported) Atorvastatin Calcium (Atorvastatin Calcium) 40 Mg Tablet, 40 MG PO QPM, (Reported) Biotin (Biotin) 5 Mg Capsule, 5,000 MCG PO DAILY, (Reported) Cholecalciferol (Vitamin D3) (Vitamin D3) 125 Mcg Tablet, 125 MCG PO QPM, (Reported) Irbesartan (Irbesartan) 300 Mg Tablet, 300 MG PO DAILY, (Reported) Magnesium Oxide (Magnesium Oxide) 400 Mg Tablet, 1 TAB PO DAILY for constipation Metoprolol Tartrate (Metoprolol Tartrate) 25 Mg Tablet, 25 MG PO BID, (Reported) Multivitamins (Thera M Plus Tablet) 1 Each Tablet, 1 TAB PO BID, (Reported) Nada-3/Dha/Epa/Fish Oil (Fish Oil 1,200 mg Softgel) 1 Each Capsule.dr, 1 CAP PO DAILY, (Reported) Pregabalin (Lyrica) 200 Mg Capsule, 100 MG PO TID Ubidecarenone/Vit E Acet (Co Q-10 100 mg Softgel) 1 Each Capsule, 100 MG PO BID, (Reported) Warfarin Sodium (Warfarin Sodium) 3 Mg Tablet, 3 MG PO QPM, (Reported) Scheduled PRN Tramadol HCl (Tramadol HCl) 50 Mg Tablet, 50 MG PO Q6H PRN for PAIN LEVEL 5-10, (Reported) Allergies Coded Allergies: Penicillins (Verified Allergy, Unknown, 06/13/21) STEF ALFARO M.D. Jun 25, 2021 06:26
[2021-06-25 14:00] VITALS: BP 115/68
[2021-06-25] MEDS ORDERED: PREG100CA PO (14:58)
== END 2021-06-25 15:45 | disposition home health service (06) | DRG 92 ==
LOC: EDBD 11:56 → M ED 11:56 → M ED INP 15:56 → M MS5PR 18:35
PROVIDERS: ADMIT Internal Medicine; ATTEND Internal Medicine
DX: R27.8 Other lack of coordination (principal); N17.9 Acute kidney failure, unspecified; E87.3 Alkalosis; I48.91 Unspecified atrial fibrillation; G47.33 Obstructive sleep apnea (adult) (pediatric); I11.0 Hypertensive heart disease with heart failure; I50.9 Heart failure, unspecified; M54.9 Dorsalgia, unspecified; T42.6X5A Adverse effect of other antiepileptic and sedative-hypnotic drugs, initial encounter; G89.29 Other chronic pain; R25.1 Tremor, unspecified; M21.371 Foot drop, right foot; K21.9 Gastro-esophageal reflux disease without esophagitis; Z66 Do not resuscitate; E04.2 Nontoxic multinodular goiter; G62.9 Polyneuropathy, unspecified; Z95.0 Presence of cardiac pacemaker; Z98.41 Cataract extraction status, right eye; Z98.42 Cataract extraction status, left eye; Z87.891 Personal history of nicotine dependence; Z96.653 Presence of artificial knee joint, bilateral; Z20.822 Contact with and (suspected) exposure to COVID-19; Z88.0 Allergy status to penicillin; Z79.01 Long term (current) use of anticoagulants; Z79.899 Other long term (current) drug therapy; Z96.642 Presence of left artificial hip joint